=== PATIENT | female | born 1955 | race Caucasian/White ===

== ENCOUNTER 2018-12-09 02:57 | Outpatient (CLI) | payer MEDICARE, SELFPAY ==
[2018-12-09 13:02] LABS: Abs Immature Grans 0.01 k/cumm (0.0-0.09); Absolute Basophil Count 0.01 k/cumm (0.0-0.2); Absolute Eosinophil Count 0.11 k/cumm (0.0-0.7); Absolute Lymphocyte Count 0.99 k/cumm (1.2-3.4); Absolute Monocyte Count 0.65 k/cumm (0.11-0.7); Basophils % 0.2; Eosinophils % 2.4; HCT 45.2 % (36.0-46.0); Immature Grans % 0.2; Lymphocytes % 21.2; Mean Corp. HGB Concentration 33.2 g/dL (32.0-36.0); Mean Corpuscular Hemoglobin 32.3 pg (27.0-33.0); Mean Corpuscular Volume 97.2 fL (80-95); Mean Platelet Volume 10.6 fL (8.0-11.0); Monocytes % 13.9; Neutrophils % 62.1; Platelet Count 196 x1000/uL (130-400); RBC 4.65 m/cumm (4.00-5.20); RBC Distribution Width 13.3 % (11.7-14.6); White Blood Cell Count 4.67 k/cumm (4.4-10.8)
[2018-12-09 13:16] LABS: ALT 33 U/L (12-78); AST 22 U/L (15-37); Albumin 3.9 g/dL (3.4-5.0); Alkaline Phosphatase 98 U/L (46-116); Anion Gap 9.4 mmol/L (3-11); BUN 9 mg/dL (7-18); Bilirubin, Total 0.5 mg/dL (0.2-1.0); CO2 27.6 mmol/L (21.0-32.0); CREATININE 0.54 mg/dL (0.55-1.02); Calcium 9.2 mg/dL (8.5-10.1); Chloride 102 mmol/L (98-107); Glucose 87 mg/dL (70-100); Potassium 4.9 mmol/L (3.5-5.1); Sodium 139 mmol/L (136-145); Total Protein 7.2 g/dL (6.4-8.2)
[2018-12-09 13:28] LABS: Iron 83 ug/dL (50-175); Total Iron Binding Capacity 355 ug/dL (250-450); Transferrin Sat 23 % (15-50)
== END 2018-12-09 03:17 ==
PROVIDERS: PCP Internal Medicine; Visit Provider Internal Medicine
DX: F41.9 Anxiety disorder, unspecified (principal); F32.9 Major depressive disorder, single episode, unspecified; E78.5 Hyperlipidemia, unspecified; R35.0 Frequency of micturition; R53.83 Other fatigue; R79.89 Other specified abnormal findings of blood chemistry
CPT/HCPCS: 36415; 80053; 83540; 83550; 84443; 85025

== ENCOUNTER 2018-12-18 16:43 | Emergency (ER) | payer MEDICARE, SELFPAY ==
[2018-12-18 16:53] VITALS: BP 160/95; PULSE 96; RESP 14; TEMP 36.7; O2SAT 96
[2018-12-18 16:56] LABS: Bilirubin Small (Negative); Blood Moderate (Negative); Clarity Cloudy; Glucose Negative (Negative); Ketones Trace mg/dL (Negative); Leukocyte Esterase Large (Negative); Nitrite Positive (Negative); Specific Gravity 1.025 (1.005-1.025); Urobilinogen 0.2 EU/dL (Up TO 0.2)
[2018-12-18 17:04] LABS: C & S Indicated? Yes; WBC >50 HPF (0-5)
--- NOTE | 2018-12-18 17:07 | W.ED.GENAD ---
Discharge Plan Disposition Patient Disposition: HOME Condition: Stable Discharge Details Chief Complaint: Urinary Clinical Impression: UTI (urinary tract infection) Primary Care Provider: Lisa Morris ED Provider: Bety Ledesma Home Meds and New Rx's Prescriptions: New cephalexin [Keflex] 500 mg capsule 500 mg PO BID 5 Days Qty: 10 RF: 0 Continued fluoxetine 40 mg capsule 40 mg PO DAILY Qty: 90 RF: 3 ibuprofen 800 mg tablet 800 mg PO TID PRN (Reason: pain) Qty: 90 RF: 3 lorazepam 1 mg tablet 1 mg PO QHS PRN (Reason: sleep) Qty: 60 RF: 0 Discharge Instructions Instructions: Urinary Tract Infection in Women (ED) Additional Instructions: Take the antibiotics until finished. Drink plenty of fluids. Alternate Tylenol and Motrin as needed and directed for pain. Follow-up with your primary care doctor in 1 week for reevaluation. Return immediately to the emergency department with any worsening or concerning symptoms. Discharge Data Discharge Physician: Bety Ledesma Medical Decision Making 63-year-old female who presents with urinary urgency and frequency for the past week. Denies fever, vomiting, abdominal or back pain. Blood pressure mildly hypertensive. Afebrile. Patient appears nontoxic. Abdomen soft nontender. No CVA tenderness. Urinalysis obtained on arrival and notes findings consistent with UTI. Given 1 dose of Keflex here as well as 1 dose for home and prescription. She is instructed to follow-up with primary care doctor for reevaluation and return here anytime if worse. Medical Records Medical records reviewed: Yes I reviewed the patient's medical records. Lab Data Lab results reviewed: Yes I reviewed the patient's lab results. 12/18/18 16:47 Urine - Reflex from Ua Urine Culture - Pending Laboratory Tests Range/Units 12/18/18 16:47 Urine Color (Yellow) Yellow Urine Clarity Cloudy Urine pH (5-8) 6.0 Ur Specific [place] (1.005-1.025) 1.025 Urine Protein (Negative) mg/dL 100 H Urine Ketones (Negative) mg/dL Trace H Urine Blood (Negative) Moderate H Urine Nitrite (Negative) Positive H Urine Bilirubin (Negative) Small H Urine Urobilinogen (Up TO 0.2) EU/dL 0.2 Ur Leukocyte Esterase (Negative) Large H Urine RBC Not Applicable Urine WBC (0-5) HPF >50 Ur Epithelial Cells Not Applicable Urine Crystals Not Applicable Urine Bacteria Not Applicable Urine Mucus Not Applicable Ur Culture Indicated? Yes Urine Glucose (Negative) mg/dL Negative HPI General Mode of arrival: ambulatory. Date/Time Provider Initiated Documentation: 12/18/18 16:45. Limitations to Documentation: no limitations. Information obtained by: patient. HPI Narrative: Patient is a 63-year-old female who presents to the ED with a complaint of urinary urgency and frequency for the past week. She denies any fever, dysuria, hematuria, nausea, vomiting, abdominal pain or back pain. Related Data Home Medications Medication Instructions Recorded Confirmed ibuprofen 800 mg tablet 800 mg PO TID PRN #90 tab-cap 07/30/18 12/18/18 fluoxetine 40 mg capsule 40 mg PO DAILY #90 cap 10/12/18 12/18/18 lorazepam 1 mg tablet 1 mg PO QHS PRN #60 tab 12/07/18 12/18/18 cephalexin [Keflex] 500 mg PO BID 5 Days #10 cap 12/18/18 Previous Rx's Medication Instructions Recorded ibuprofen 800 mg tablet 800 mg PO TID PRN #90 tab-cap 07/30/18 fluoxetine 40 mg capsule 40 mg PO DAILY #90 cap 10/12/18 lorazepam 1 mg tablet 1 mg PO QHS PRN #60 tab 12/07/18 cephalexin [Keflex] 500 mg PO BID 5 Days #10 cap 12/18/18 Allergies Allergy/AdvReac Type Severity Reaction Status Date / Time No Known Allergies Allergy Unverified 12/18/18 16:55 General Stated Complaint: Urinary RACHELLE: 4 Review of Systems Review of Systems All systems reviewed & are unremarkable except as noted in HPI and below Constitutional Reports as per HPI, Denies chills and Denies fever(s) Eyes Denies blurry vision ENT Denies dizziness, Denies sore throat and Denies throat swelling Cardiovascular Denies chest pain and Denies dyspnea Respiratory Denies cough and Denies dyspnea Gastrointestinal Denies abdominal pain, Denies diarrhea and Denies vomiting Genitourinary Denies hematuria, Reports urinary frequency, Reports dysuria and Reports urinary urgency Musculoskeletal Denies back pain and Denies numbness Integumentary/Breasts Denies lesions and Denies rash Neurologic Denies dizziness, Denies focal weakness and Denies numbness Allergic/Immunologic Denies throat swelling [facility] Medical History Anxiety (Chronic) Depression (Chronic) Surgical History History of appendectomy (Chronic) Family History Mother Heart disease Father Throat cancer Social History Smoking/Tobacco Use Status: Former Tobacco Use Second Hand Exposure: No Alcohol Intake: current Alcohol Intake frequency: a few times a week Alcohol type: beer Drug use: Never Substance use type: does not use Caregiver/Support person: No Household members: spouse Pets and animals: Yes Pets and animals: dog(s) Sexually active: Yes Do you think of yourself as: straight/heterosexual Current gender identity: female What is your relationship status?: How often do you talk on the phone with friends or family?: three or more times per week How often do you get together with friends or relatives?: once per week How often do you attend scientology or jainism services?: decline to answer Do you belong to any clubs or organized social groups?: no Panel score (0-1 are the most socially isolated patients): 2 What type of physical activity do you participate in: walking Duration: 15-30 minutes/day Frequency: 1-2 times per week Jen/Gnosticism: Pentecostal Special jen needs: No Do you feel safe at home: Yes Do you feel safe in your relationship?: Yes Exam Const General: cooperative, healthy appearing and no acute distress [facility] Head: normal to inspection Face and sinus: normal facial exam Eyes General: appearance normal, both eyes and all related structures Pupils: PERRL EOM: EOM intact bilaterally Neck Neck: normal visual inspection and No submandibular swelling Lymphatic: no lymphadenopathy noted Chest Chest: normal inspection of the chest and no tenderness Resp Effort & Inspection: normal respiratory effort and able to speak in complete sentences Auscultation: clear to auscultation bilaterally Cardio Rate: regular rate Rhythm: regular rhythm GI Inspection: normal to inspection Palpation: soft, not firm, not rigid and nontender Auscultation: normal bowel sounds Back/Spine/Pelvis Back: no CVA tenderness Skin General skin exam: no rashes or lesions noted Neuro General: alert, awake and oriented x3 Cognition: normal cognition Speech: speech normal Motor: muscle tone normal throughout Sensory Exam: no sensory deficits noted Extrem General: normal to inspection, full ROM and no edema Psych Appearance: grossly normal Mental Status: mental status grossly normal Speech and Movement: speech and movement normal Affect: normal affect Course Vital Signs Temperature 98.1 F 12/18/18 16:53 Pulse 96 H 12/18/18 16:53 Respiratory Rate 14 12/18/18 16:53 Blood Pressure 160/95 H 12/18/18 16:53 Pulse Oximetry 96 12/18/18 16:53 Temperature 98.1 F 12/18/18 16:53 Pulse 96 H 12/18/18 16:53 Respiratory Rate 14 12/18/18 16:53 Respiratory Effort Non-Labored 12/18/18 16:56 Blood Pressure 160/95 H 12/18/18 16:53 Pulse Oximetry 96 12/18/18 16:53 Oxygen Delivery Method Room Air 12/18/18 16:53 Oxygen Flow Rate 0 12/18/18 16:53 Pain Level 6 12/18/18 16:55 Lab/Test Results Lab/Test Results: 12/18/18 16:47 Urine - Reflex from Ua Urine Culture - Pending Laboratory Tests Range/Units 12/18/18 16:47 Urine Color (Yellow) Yellow Urine Clarity Cloudy Urine pH (5-8) 6.0 Ur Specific [place] (1.005-1.025) 1.025 Urine Protein (Negative) mg/dL 100 H Urine Ketones (Negative) mg/dL Trace H Urine Blood (Negative) Moderate H Urine Nitrite (Negative) Positive H Urine Bilirubin (Negative) Small H Urine Urobilinogen (Up TO 0.2) EU/dL 0.2 Ur Leukocyte Esterase (Negative) Large H Urine RBC Not Applicable Urine WBC (0-5) HPF >50 Ur Epithelial Cells Not Applicable Urine Crystals Not Applicable Urine Bacteria Not Applicable Urine Mucus Not Applicable Ur Culture Indicated? Yes Urine Glucose (Negative) mg/dL Negative
[2018-12-18] MEDS: Cephalexin 500 MG CAP PO ×2 (17:55)
[2018-12-18 18:00] VITALS: BP 137/81; PULSE 78; RESP 20; TEMP 36.3; O2SAT 95
== END 2018-12-18 18:03 | disposition home or self-care (01) ==
PROVIDERS: Student in an Organized Health Care Education/Training Program; Emergency Provider Physician Assistant; PCP Internal Medicine
DX: N39.0 Urinary tract infection, site not specified (principal); B96.20 Unspecified Escherichia coli [E. coli] as the cause of diseases classified elsewhere
CPT/HCPCS: 87077; 99283; 81003; 81015; 87086; 87186

== ENCOUNTER 2019-01-25 01:51 | Outpatient (CLI) | payer MEDICARE, SELFPAY ==
--- NOTE | 2019-01-25 15:10 | DI.US_ITS ---
SYMPTOM/DIAGNOSIS: LT KNEE PAIN, M25.562, ? DVT LEFT LOWER EXTREMITY ULTRASOUND: The femoral and popliteal veins and visualized calf veins are freely compressible. The doppler venous wave form augments normally. No deep venous thrombosis or superficial thrombosis is identified. A small Clay's cyst is noted measuring 1.9 by 0.4 by 1.6 cm. IMPRESSION: Small Clay's cyst. No evidence of DVT.
== END 2019-01-25 02:11 ==
PROVIDERS: PCP Internal Medicine
DX: M25.562 Pain in left knee; M71.22 Synovial cyst of popliteal space [Baker], left knee
CPT/HCPCS: 93971

== ENCOUNTER 2019-02-27 17:59 | Emergency (ER) | payer MEDICARE, SELFPAY ==
[2019-02-27 18:01] VITALS: BP 132/69; PULSE 80; RESP 16; TEMP 36.6; O2SAT 99
--- NOTE | 2019-02-27 18:18 | DI.RAD_ITS ---
SYMPTOM/DIAGNOSIS: LEFT MEDIAL KNEE PAIN, 1 MONTH WORSENING. LEFT KNEE: There is mild narrowing of the medial femoral tibial joint space. There is a small joint effusion. There is no significant camila-articular spurring. No fracture is identified. IMPRESSION: Small joint effusion.
--- NOTE | 2019-02-27 18:25 | ED.GENADUL_ITS ---
Discharge Plan Disposition Patient Disposition: HOME Condition: Good Discharge Details Chief Complaint: Orthopedic Clinical Impression: Acute pain of left knee, Muscle strain Primary Care Provider: Lisa Morris ED Provider: Stanley Jack Home Meds and New Rx's Prescriptions: New lidocaine [Lidoderm] 1 PATCH patch 1 patch Topical Q24H Qty: 4 RF: 0 No Action fluoxetine 40 mg capsule 40 mg PO DAILY Qty: 90 RF: 3 apixaban 5 mg tablet 5 mg PO BID Qty: 60 RF: 0 lorazepam 1 mg tablet 1 mg PO QHS PRN (Reason: sleep) Qty: 60 RF: 0 diltiazem HCl [Cartia XT] 180 mg Capsule,Extended Release 24hr 180 mg PO DAILY RF: 0 Discharge Instructions Instructions: Muscle Strain (ED), Knee Pain (ED) Additional Instructions: Please use the Lidoderm patch as directed. Please continue to take 500 mg of Tylenol every 6 hours. Please maintain crutch use, and maintain nonweightbearing for the next 1 to 2 weeks until you are reassessed by your primary care provider. Please follow-up on an outpatient basis for the ultrasound. They will call you for scheduling time. If you notice any worsening of your symptoms, or any new symptoms such as vomiting, diarrhea, fever, chills, shortness of breath, chest pain, numbness, weakness, or fainting , please return immediately to the emergency department for reevaluation. Please follow up with your primary care provider as soon as possible for reassessment and reevaluation. As always, it was a pleasure participating in your medical care today. Referrals: Lisa Morris MD [Primary Care Provider] - Medical Decision Making This is a pleasant 63-year-old female with a past medical history of atrial fibrillation for which he takes Eliquis, who presents today for evaluation of left knee pain. It is been present for the last month. She had an ultrasound performed 1 month ago which showed evidence of a Clay's cyst, but no other significant abnormality. She has been taking occasional Tylenol but this is led to no significant improvement. Pain is at the medial aspect of the knee, worse with ambulation, with slight radiation up the medial component. There is mild tenderness in the posterior aspect as well. Minimal swelling. Mild joint effusion in the knee on bedside limited ultrasound exam. Limited bedside ultrasound was performed in evaluation of the vessels in the area of tenderness shows notable compressibility no signs of trauma. Pain does seem to be present over the insertion site over the sartorius muscle in the chrysalis muscle. This may just be localized muscle irritation. We will get an x-ray to evaluate for small avulsion fracture. Give a Lidoderm patch, crutches, and recommend continue Tylenol. Patient is already on Eliquis and I feel that DVT is unlikely, however we will order outpatient formal ultrasonography for reassessment of the Clay's cyst. 7:17 PM The patient's x-ray has returned negative for any acute process. Pain is slightly improved with Lidoderm patch. I still do feel that there is notable concern for gracilis or sartorius sprain that is causing problems. I do feel that rest and nonweightbearing is important at this time as a trial with crutches. If she has no improvement with this I do feel that it will be important for orthopedic follow-up, however feel that we can continue with this conservative therapy first. Additionally we will schedule for an outpatient ultrasound for evaluation of her Clay's cyst. I feel that DVT is notably unlikely as she is consistently on Eliquis, and has not missed any doses. At this time the patient remains hemodynamically stable, shows no signs of a septic joint, severe orthopedic disability, or a life-threatening etiology. Patient will be discharged home with close follow-up. We will schedule the outpatient ultrasound. I have extensively reviewed the treatment plan and discharge instructions with the patient. I have addressed all patient concerns at this time. The patient was made aware of what symptoms to monitor for that would warrant a return to the emergency department. Discussed the plan with the patient, they demonstrate verbal understanding and agreement with our assessment and plan at this time. FINDINGS: Bones/joints: Mild suprapatellar joint effusion. There is no evidence of acute fracture. There is no evidence of malalignment or dislocation. Soft tissues: Normal. IMPRESSION: 1. Mild suprapatellar joint effusion. 2. There is no evidence of acute fracture. Dictated and Authenticated by: Brigid Camilo MD. Ordering:FAVIOLA Angel MD HPI General Date/Time Provider Initiated Documentation: 02/27/19 18:00 . HPI Narrative: This is a pleasant 63-year-old female who presents today for evaluation of left-sided knee pain. Patient states that the symptoms have been present for the last month. She is on Eliquis for atrial fibrillation. She had a lower extremity DVT study performed 1 month ago, and at that time she had evidence of a small Clay's cyst, but no DVT. No other significant abnormalities. She has been using conservative therapy of occasional Tylenol for control the symptoms however this is not improved her symptoms. Symptoms are worsened with ambulation. Improved-rest. Symptoms are on the medial aspect of the knee, and radiate proximally roughly 6 inches. She denies any significant swelling in the lower extremity. She denies any pain in the hip. She denies any recent falls or trauma. She has no other complaints at this time. She denies any recent surgeries, long trips, recent procedures, numbness, tingling, weakness, fever or chills. Related Data Home Medications Medication Instructions Recorded Confirmed fluoxetine 40 mg capsule 40 mg PO DAILY #90 cap 10/12/18 02/27/19 apixaban 5 mg tablet 5 mg PO BID #60 tab 02/15/19 02/27/19 lorazepam 1 mg tablet 1 mg PO QHS PRN #60 tab 02/16/19 02/27/19 diltiazem HCl [Cartia XT] 180 mg PO DAILY 02/27/19 02/27/19 lidocaine [Lidoderm] 1 patch TOPICAL Q24H #4 patch 02/27/19 Previous Rx's Medication Instructions Recorded fluoxetine 40 mg capsule 40 mg PO DAILY #90 cap 10/12/18 apixaban 5 mg tablet 5 mg PO BID #60 tab 02/15/19 lorazepam 1 mg tablet 1 mg PO QHS PRN #60 tab 02/16/19 lidocaine [Lidoderm] 1 patch TOPICAL Q24H #4 patch 02/27/19 Allergies Allergy/AdvReac Type Severity Reaction Status Date / Time No Known Allergies Allergy Verified 02/27/19 18:05 General Stated Complaint: Orthopedic RACHELLE: 4 Review of Systems Review of Systems All systems reviewed & are unremarkable except as noted in HPI and below PFSH Social History Smoking/Tobacco Use Status: Former Tobacco Use Second Hand Exposure: No Alcohol Intake: current Alcohol Intake frequency: a few times a week Alcohol type: beer Drug use: Never Substance use type: does not use Caregiver/Support person: No Household members: spouse Pets and animals: Yes Pets and animals: dog(s) Sexually active: Yes Do you think of yourself as: straight/heterosexual Current gender identity: female What is your relationship status?: How often do you talk on the phone with friends or family?: three or more times per week How often do you get together with friends or relatives?: once per week How often do you attend adventism or mosque services?: decline to answer Do you belong to any clubs or organized social groups?: no Panel score (0-1 are the most socially isolated patients): 2 What type of physical activity do you participate in: walking Duration: 15-30 minutes/day Frequency: 1-2 times per week Jen/Sabianism: Roman Catholic Special jen needs: No Do you feel safe at home: Yes Do you feel safe in your relationship?: Yes Exam Narrative Exam Narrative: 1.Const: Well-nourished, Well-developed, appearing stated age 2.Eyes: PERRL, no conjunctival injection, and symmetrical lids. 3.ENT: Atraumatic external nose and ears. Moist MM. Neck: Symmetric, trachea midline, No thyromegaly. 4.CVS: +S1/S2, No murmurs or gallops. Peripheral pulses 2+ and equal in all extremities. Brisk capillary refill in all extremities. 5.RESP: Unlabored respiratory effort. Clear to auscultation bilaterally. No wheezes rales or rhonchi 6.GI: Soft, Nontender/Nondistended, No hepatosplenomegaly. No guarding or rebo und. 7.MSK: Normocephalic/Atraumatic, Extremities w/o deformity. No cyanosis or clubbing, Normal movement of all extremities. Left knee: the knee is stable to varus, valgus, and anterior drawer stress. No deformity. Pain is slightly worsened with valgus stressing. patellar grind test is negative. Luzma test is negative for pain. Patient is able to walk without difficulty. No edema or warmth to the joint. No ttp to the patella, or fibular head. There does appear to be mild pain on palpation of the medial distal femur tip in the proximal tibial plateau. His pain does appear to be reproducible and is really reproducibly radiating up the medial aspect of the thigh roughly 6 inches. Limited bedside ultrasound directly over the area of pain does show a few small vessels, all of which are easily compressible. No evidence of DVT or clot. There is a small amount of joint effusion on bedside ultrasound. When the patient does ambulate she does have a bit of a winged telling of her left lower extremity. Minimal limp. 8.Skin: Warm, Dry. No rashes or lesions. 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 Sensation grossly intact, no focal neurologic deficits. 10.Psych: (AAO) x3. Appropriate mood and affect Course Vital Signs Temperature 36.6 C 02/27/19 18:01 Pulse 80 02/27/19 18:01 Respiratory Rate 16 02/27/19 18:01 Blood Pressure 132/69 02/27/19 18:01 Pulse Oximetry 99 02/27/19 18:01 Temperature 36.6 C 02/27/19 18:01 Temperature Source Skin 02/27/19 18:01 Pulse 80 02/27/19 18:01 Respiratory Rate 16 02/27/19 18:01 Respiratory Effort Non-Labored 02/27/19 18:04 Blood Pressure 132/69 02/27/19 18:01 Pulse Oximetry 99 02/27/19 18:01 Pain Level 8 02/27/19 18:01
--- NOTE | 2019-02-27 19:08 | DI.VRAD_ITS ---
EXAM: XR Left Knee EXAM DATE/TIME: 02/27/2019 6:19 PM CLINICAL HISTORY: 63 years old, female; Patient HX: Left medial knee pain, 1 month, worsening TECHNIQUE: Imaging protocol: XR Left knee. Views: 3 views. COMPARISON: US LOWER EXTREMITY VASCULAR LT 01/25/2019 2:30 PM FINDINGS: Bones/joints: Mild suprapatellar joint effusion. There is no evidence of acute fracture. There is no evidence of malalignment or dislocation. Soft tissues: Normal. IMPRESSION: 1. Mild suprapatellar joint effusion. 2. There is no evidence of acute fracture. Dictated and Authenticated by: Brigid Camilo MD. Ordering:FAVIOLA Angel MD
--- NOTE | 2019-02-27 19:11 | NUR.NOTE ---
pt back from xray fitted for crutches Nursing Note:
[2019-02-27] MEDS: Lidocaine 5% Patch 1 PATCH TP (19:16)
== END 2019-02-27 19:30 | disposition home or self-care (01) ==
PROVIDERS: Emergency Provider Student in an Organized Health Care Education/Training Program; PCP Internal Medicine
DX: M25.562 Pain in left knee (principal); S76.812A Strain of other specified muscles, fascia and tendons at thigh level, left thigh, initial encounter; I48.91 Unspecified atrial fibrillation; Z79.01 Long term (current) use of anticoagulants
CPT/HCPCS: 73562; 99283; E0114

== ENCOUNTER 2019-03-06 00:45 | Outpatient (CLI) | payer MEDICARE, SELFPAY ==
--- NOTE | 2019-03-06 14:10 | MERGE_ITS ---
*[facility]* *[facility]* [address] [place] [address] Date of study: 03/06/2019 Transthoracic Echocardiography M-mode, complete 2D, complete spectral Doppler, and color Doppler *STUDY CONCLUSIONS* Summary: 1. Left ventricle: The cavity size was normal. Systolic function was normal. The estimated ejection fraction was 60-65%. Diastolic parameters were normal. There was no evidence of elevated ventricular filling pressure by Doppler parameters. 2. Mitral valve: There was mild regurgitation. 3. Left atrium: The atrium was mildly dilated. 4. Right ventricle: The cavity size was normal. Wall thickness was normal. Systolic function was normal. 5. Right atrium: The atrium was mildly dilated. 6. Atrial septum: No defect or patent foramen ovale was identified. 7. Tricuspid valve: There was moderate regurgitation. 8. Pulmonary arteries: Pulmonary systolic pressure was in the range of 35mm Hg to 45mm Hg. 9. Inferior vena cava: The vessel was patent and normal in size. The respirophasic diameter changes were in the normal range (greater than or equal to 50%), consistent with normal central venous pressure. *PATIENT PRESENTATION* Height: 167.6cm (66in ) S/D Pressure: 131 / 87 Weight: 87.1kg (191.6lb ) BSA: 2.04m^2 Test start time: 02:15 PM. Test stop time: 03:15 PM. PERFORMING Unknown PERFORMING [facility] ORDERING Jenny Brooks REFERRING Jenny Brooks Susan M NEUROLOGY DIRECTOR Ally Lawrence, RT (R)(CT), [facility] *PROCEDURE DATA* Procedure information: This study was interpreted by [facility]. Pertinent images and digital data are archived for permanent storage and are available for subsequent review. No prior study was available for comparison. Study status: Routine. Transthoracic echocardiography. M-mode, complete 2D, complete spectral Doppler, and color Doppler. A Transthoracic Echocardiogram was performed. Scanning was performed from the parasternal, apical, subcostal, and suprasternal notch acoustic windows. Images were obtained using an [id number] cardiac ultrasound machine. Image quality was adequate. Study completion: The patient tolerated the procedure well. History: PMH: New onset afib. LINO i48.91. *CARDIAC ANATOMY* Left ventricle: The cavity size was normal. Systolic function was normal. The estimated ejection fraction was 60-65%. The tissue Doppler parameters were normal. Diastolic parameters were normal. There was no evidence of elevated ventricular filling pressure by Doppler parameters. Aortic valve: Trileaflet. Doppler: There was no stenosis. There was no regurgitation. VTI ratio of LVOT to aortic valve: 0.81. Valve area (VTI): 2.1cm^2. Indexed valve area (VTI): 1cm^2/m^2. Peak velocity ratio of LVOT to aortic valve: 0.8. Valve area (Vmax): 2cm^2. Indexed valve area (Vmax): 1cm^2/m^2. Mean velocity ratio of LVOT to aortic valve: 0.72. Valve area (Vmean): 1.8cm^2. Indexed valve area (Vmean): 0.9cm^2/m^2. Mean gradient (S): 4.4mm Hg. Peak gradient (S): 7.4mm Hg. Aorta: Aortic root: The aortic root was at upper normal limits. Ascending aorta: The ascending aorta was mildly dilated. Mitral valve: Doppler: There was no evidence for stenosis. There was mild regurgitation. Valve area by pressure half-time: 3.8cm^2. Indexed valve area by pressure half-time: 1.9cm^2/m^2. Peak gradient (D): 4.4mm Hg. Left atrium: The atrium was mildly dilated. Atrial septum: No defect or patent foramen ovale was identified. Right ventricle: The cavity size was normal. Wall thickness was normal. Systolic function was normal. Pulmonic valve: Doppler: There was no evidence for stenosis. There was no significant regurgitation. Peak gradient (S): 3mm Hg. Tricuspid valve: Doppler: There was moderate regurgitation. Pulmonary artery: Poorly visualized. Pulmonary systolic pressure was in the range of 35mm Hg to 45mm Hg. Right atrium: The atrium was mildly dilated. Pericardium: There was no pericardial effusion. Systemic veins: Inferior vena cava: Well visualized. The vessel was patent and normal in size. The respirophasic diameter changes were in the normal range (greater than or equal to 50%), consistent with normal central venous pressure. Baseline ECG: Atrial fibrillation. Measurements Left ventricle Value Reference LV ID, ED, PLAX 4.4 cm 3.5 - 6.0 LV ID, ES, PLAX 2.9 cm 2.1 - 4.0 LV PW thickness, ED, PLAX 0.9 cm LV end-diastolic volume, 1-p A2C 88 ml LV ejection fraction, 1-p A2C 56 % LV end-diastolic volume, 1-p A4C 77 ml LV ejection fraction, 1-p A4C 64 % LV e', lateral 0.129 m/sec LV E/e', lateral 8 LV e', medial 0.093 m/sec LV E/e', medial 11 LV e', average 0.111 m/sec LV E/e', average 9 Ventricular septum Value Reference IVS thickness, ED, PLAX 0.9 cm LVOT Value Reference LVOT ID, A-P 1.8 cm LVOT area 2.6 cm^2 LVOT peak velocity, S 1.08 m/sec LVOT mean velocity, S 0.72 m/sec LVOT VTI, S 21.0 cm LVOT peak gradient, S 4.7 mm Hg LVOT mean gradient, S 2.4 mm Hg Stroke volume (SV), LVOT DP 54 ml Stroke index (SV/bsa), LVOT DP 26 ml/m^2 Aortic valve Value Reference Aortic valve peak velocity, S 1.4 m/sec Aortic valve mean velocity, S 1 m/sec Aortic valve VTI, S 26.0 cm Aortic mean gradient, S 4.4 mm Hg Aortic peak gradient, S 7.4 mm Hg VTI ratio, LVOT/AV 0.81 Aortic valve area, VTI 2.1 cm^2 Velocity ratio, peak, LVOT/AV 0.8 Aortic valve area, peak velocity 2 cm^2 Velocity ratio, mean, LVOT/AV 0.72 Aortic valve area, mean velocity 1.8 cm^2 Aortic valve area/bsa, mean velocity 0.9 cm^2/m^2 Aorta Value Reference Aortic root ID, ED 3.7 cm Ascending aorta ID, A-P, S 3.2 cm Left atrium Value Reference LA ID, A-P, ES 4.0 cm LA ID/bsa, A-P 2.0 cm/m^2 <=2.2 LA volume/bsa, ES, 1-p A4C 46 ml/m^2 LA volume, ES, 2-p 81 ml LA volume/bsa, ES, 2-p 40 ml/m^2 LA/aortic root ratio 1.1 Mitral valve Value Reference Mitral E-wave peak velocity 1.05 m/sec Mitral deceleration time 199 ms 150 - 230 Mitral pressure half-time 58 ms Mitral peak gradient, D 4.4 mm Hg Mitral valve area, PHT, DP 3.8 cm^2 Tricuspid valve Value Reference Tricuspid regurg peak velocity 2.9 m/sec Tricuspid peak RV-RA gradient 34 mm Hg Right atrium Value Reference RA area, ES, A4C (H) 22.2 cm^2 8.3 - 19.5 Pulmonic valve Value Reference Pulmonic peak gradient, S 3 mm Hg Legend: (L) and (H) berta values outside specified reference range. I have personally reviewed the images and have reviewed and edited the reported findings. Electronically signed by Jonathan Hernandez MD 03/06/2019 16:12
== END 2019-03-06 01:05 ==
PROVIDERS: PCP Internal Medicine
DX: I48.91 Unspecified atrial fibrillation (principal); I08.1 Rheumatic disorders of both mitral and tricuspid valves; I51.7 Cardiomegaly; R53.83 Other fatigue
CPT/HCPCS: 93306

== ENCOUNTER 2019-03-15 00:57 | Outpatient (CLI) | payer MEDICARE, SELFPAY ==
--- NOTE | 2019-03-15 15:03 | DI.MRI_ITS ---
SYMPTOMS/DIAGNOSIS: LEFT KNEE PAIN/SWELLING, MRI OF THE LEFT KNEE: Routine noncontrast examination was performed. There is a tear of the body and posterior horn of the medial meniscus. There is an associated encapsulate fluid collection, most suggestive of a parameniscal cyst. The lateral meniscus appears intact. The anterior cruciate and posterior cruciate ligaments are intact, as is the lateral collateral ligament complex, extensor mechanism, medial and lateral retinaculum and the popliteus tendon. There is fluid seen surrounding an intact medial collateral ligament consistent with a sprain. There is thinning of the articular cartilage in the medial femorotibial joint space. No findings to suggest an occult fracture or avascular necrosis are seen. There is an enlarged joint effusion. There is a popliteal cyst present. There is edema seen in the soft tissues around the knee. The muscles show normal signal and size. No significant muscular fatty atrophy is present. IMPRESSION: 1. Tear of the posterior horn and body of the medial meniscus with an associated parameniscal cyst. 2. MCL sprain. 3. Large joint effusion, popliteal cyst and subcutaneous edema.
== END 2019-03-15 01:17 ==
PROVIDERS: PCP Internal Medicine; Visit Provider Internal Medicine
DX: M25.562 Pain in left knee (principal); M79.89 Other specified soft tissue disorders; S83.242A Other tear of medial meniscus, current injury, left knee, initial encounter; S83.412A Sprain of medial collateral ligament of left knee, initial encounter; M25.462 Effusion, left knee; M71.22 Synovial cyst of popliteal space [Baker], left knee
CPT/HCPCS: 73721

== ENCOUNTER → 2019-04-10 14:37 | Outpatient (BNVA) | payer MEDICARE, SELFPAY | PROVIDERS: PCP Internal Medicine; Referring Provider Internal Medicine; Visit Provider Student in an Organized Health Care Education/Training Program | DX: S83.232A Complex tear of medial meniscus, current injury, left knee, initial encounter (principal); X58.XXXA Exposure to other specified factors, initial encounter; M25.562 Pain in left knee | CPT/HCPCS: 20610; 99203; 99214; J1040 ==

== ENCOUNTER → 2019-04-26 13:47 | Outpatient (BNVA) | payer MEDICARE, SELFPAY | PROVIDERS: PCP Internal Medicine; Visit Provider Student in an Organized Health Care Education/Training Program | DX: I48.2 Chronic atrial fibrillation (principal); E78.2 Mixed hyperlipidemia; Z79.01 Long term (current) use of anticoagulants | CPT/HCPCS: 99204; 99214 ==

== ENCOUNTER → 2019-05-22 14:41 | Outpatient (BNVA) | payer MEDICARE, SELFPAY | PROVIDERS: PCP Internal Medicine; Referring Provider Internal Medicine; Visit Provider Student in an Organized Health Care Education/Training Program | DX: M25.562 Pain in left knee (principal); S83.232A Complex tear of medial meniscus, current injury, left knee, initial encounter; X58.XXXA Exposure to other specified factors, initial encounter; Z98.890 Other specified postprocedural states | CPT/HCPCS: 99213 ==

== ENCOUNTER 2020-01-30 18:43 | Outpatient (REF) | payer MEDICARE, SELFPAY ==
[2020-01-30 19:14] LABS: Calculated LDL 145 mg/dL (<100); Cholesterol 233 mg/dL (<200); HDL Cholesterol 60 mg/dL (40-60); Triglyceride 140 mg/dL (<150)
== END 2020-01-30 19:03 ==
LOC: LBN 18:43
PROVIDERS: PCP Nurse Practitioner; Visit Provider Internal Medicine
DX: E78.5 Hyperlipidemia, unspecified (principal)
CPT/HCPCS: 80061

== ENCOUNTER → 2022-03-20 00:46 | Outpatient (CLI) | payer OTHER, SELFPAY ==
--- OUTSIDE RECORDS SUMMARY | 2022-03-20 00:48 | XMS_ITS | Encounter Summary ---
:1955 Author Organization [facility] Address [address] [place] [address] Care Team Providers Name Role Phone Unavailable Primary Care Provider Unavailable Encounter Details Date Type Department Care Team Description 03/19/2000 Results Only [facility] - Breann Vora MD Maple conversion [address] [place], [place] [id number] [place] [id number] [phone] Social History Tobacco Use Types Packs/Day Years Used Date Never Assessed Sex Assigned at Date Recorded Not on file documented as of this encounter Plan of Treatment Not on filedocumented as of this encounter Procedures Procedure Name Priority Date/Time Associated Diagnosis Comme [facility] SURGICAL PATHOLOGY Routine 03/19/2000 0:00 EDT Re sults for this procedure are i n the results section. documented in this encounter Results SURGICAL PATHOLOGY (03/19/2000 0:00 EDT) Pathology Report: SURGICAL PATHOLOGY REPORT [facility] Reports generated via electronic interface contain chang ginal data; LAB however they are lacking the format of the original re port. Caution should be taken when reading/interpreting unfo rmatted reports. Name: ? PRASAD ÁLVAREZ ? Accession #: ? [id number] ? : ? 1955 (Age: 44) ??F ? Collect Date: ? 03/19/2000 ? Location: ? [facility] ? Receive Date: ? 000 ? Provider: BREANN VORA MD Copy to: DUSTY SEPULVEDA MD ? Final Pathologic Diagnosis: ? Skin of axilla, right, shave biopsy: - Verruca vulgaris. Document reviewed and electronically signed by: HARPAL SANZ MD Report ??Date: 03/24/2000 15:49 By the signature above, the attending physician certif ies that he/she has personally conducted a gross and/or microscopic examin ation of the described specimens and rendered or confirmed the above diagnosi s. Specimen(s) Received: ? Papilloma right axilla Clinical History: ? Papilloma right axilla, present for several yea rs Gross Description: ? Received in formalin labelled Wh iting and papilloma rgt axilla is a roughly spherical portion of roach-white nodular tissue measuring 1.1 x 1.1 x 1.0 cm. ??Trisection of the fria ble specimen reveals a roach-white to centrally brown cut surface. ??The specimen is submitted entirely in o ne cassette. (Dr. Gant)/[facility] End of Report Specimen Performing Organization Address City/State/ZIP Code Phon e Number [facility] [address] [place] [address] SERVICES [facility] [address] [place] [address] documented in this encounter Visit Diagnoses Not on filedocumented in this encounter
--- OUTSIDE RECORDS SUMMARY | 2022-03-20 00:48 | XMS_ITS | Clinical Summary ---
:1955 Author Organization [facility] Address [address] [place] [id number] Care Team Providers Name Role Phone Unknown, Provider Primary Care Provider Social History Tobacco Use Types Packs/Day Years Used Date Never Assessed Sex Assigned at Date Recorded Not on file Plan of Treatment Health Maintenance Due Date Last Done Comments Fall Risk Screening 2018 Care Teams Spa Technician Relationship Specialty Start Date End Date Unknown, Provider, PCP - General 07/12/15
--- OUTSIDE RECORDS SUMMARY | 2022-03-20 00:48 | XMS_ITS | Encounter Summary ---
:1955 Author Organization [facility] Address [address] [place] [address] Care Team Providers Name Role Phone Unavailable Primary Care Provider Unavailable Encounter Details Date Type Department Care Team Description 11/08/2008 Before PRISM [facility] - Karla Vieira, Converted Visit Maple conversion READING PROFESSOR (Maple) [address] [place] [address] [place], [place] [phone] (Wo rk) Social History Tobacco Use Types Packs/Day Years Used Date Never Assessed Sex Assigned at Date Recorded Not on file documented as of this encounter Plan of Treatment Not on filedocumented as of this encounter Procedures Procedure Name Priority Date/Time Associated Diagnosis Comme [facility] CYTOPATHOLOGY Routine 11/08/2008 0:00 EST Results for this procedure are i n the results section . documented in this encounter Results CYTOPATHOLOGY (11/08/2008 0:00 EST) Pathology Report: CYTOPATHOLOGY REPORT ? AMAYA ALL EN ? LAB Reports generated via [employer] interface contain original data; ? however they are lacking the format of the original report. ? Caution should be taken when reading/interpreting unformatted reports. ? Name: ? ÁLVAREZ, PRASAD ? Accession #: ? [id number] ? : ? 1955 (Age: 53) ??F ?Collect Date: ? 11/08/2008 ? Location: ? [facility] ? Receive Date: ? 11/09/2008 ? Provider: ?KARLA HAYG OOD READING PROFESSOR ? Copy to: ? Specimen/Source: ? Pap Test, Cervix/Endocervix, ThinPrep Imaging System ? with manual evaluation ? Last Menstrual Period: ? 02/18/09 ? Other: ? HPVA - HPV testing requested if ASC-US on the current ThinPrep Pap test. ? SPECIMEN ADEQUACY ? Satisfactory for Eval uation ? - transformation zone compon ent present ? GENERAL CATEGORIZATION ? Negative for Intraepi thelial Lesion or Malignancy ? INTERPRETATION ? Shift in nain presen t suggestive of bacterial vaginosis. ? Document reviewed and electr onically signed by: ? Kami Damián, CT(ASCP ) ? Report Date: ??03/10/ 2009 15:01 ? End of Report ? Specimen Performing Organization Address City/State/ZIP Code Phon e Number [facility] [address] [place] [address] SERVICES [facility] [address] [place] [address] documented in this encounter Visit Diagnoses Not on filedocumented in this encounter
--- OUTSIDE RECORDS SUMMARY | 2022-03-20 00:48 | XMS_ITS | Encounter Summary ---
:1955 Author Organization [facility] Address [address] [place] [address] Care Team Providers Name Role Phone Unknown, Provider Primary Care Provider Encounter Details Date Type Department Care Team Description 05/06/2017 Results Only [facility]- Lisa Cruz, MD [address] [place] [address] (Wo rk) Social History Tobacco Use Types Packs/Day Years Used Date Never Assessed Sex Assigned at Date Recorded Not on file documented as of this encounter Plan of Treatment Not on filedocumented as of this encounter Procedures Procedure Name Priority Date/Time Associated Diagnosis Comme [facility] SURGICAL PATHOLOGY Routine 05/06/2017 13:03 Resul ts for this EDT procedure are i n the results section. documented in this encounter Results SURGICAL PATHOLOGY (05/06/2017 13:03 EDT) Pathology Report: SURGICAL PATHOLOGY REPORT [facility] Reports generated via electronic interface contain chang ginal data; LABORATORY however they are lacking the format of the original re port. SERVICES Caution should be taken when reading/interpreting unfo rmatted reports. Name: ? MORALES LOWERY ? Accession #: ? [id number] ? : ? 1955 (Age: 61 ) ??F ? Collect Date: ? 05/06/2017 ? Location: ? [facility] ? Receive Date: ? 7 ? Provider: LISA NAVAS MD Copy to: ? Final Pathologic Diagnosis: A. ??SKIN NEAR BRA LINE, LEFT, SHAVE BIOPSY: - Hemangioma, irritated. B. ??SKIN OF BACK, LEFT UPPER, SHAVE BIOPSY: - Seborrheic keratosis, inflamed. Document reviewed and electronically signed by: SHELLEY VOSS MD Report ??Date: 05/11/2017 13:38 By the signature above, the attending physician certif ies that he/she has personally conducted a gross and/or microscopic examin ation of the described specimens and rendered or confirmed the above diagnosi s. Specimen(s) Received: A. ??Hemangioma of L bra line B. ??L upper back Clinical History: Not listed Gross Description: A. ?Received in formalin labelled with proper p atient identification (initials C, P) and hemangioma L bra line is a rubbe ry multilobulated brown-purple lesion (0.5 x 0.4 x 0.4 cm) . There is an attached irregular strip of pale roach-guevara skin (0.4 x 0.3 cm). The margin is inked. Bisected and entirely submitted in A1. B. ?Received in formalin labelled with proper p atient identification (initials C, P) and L upper back is a rubbery roach nodular skin lesion (0.7 x 0.6 x 0.5 cm). The surface of the lesion is gran ular and white. The margin is inked. Trisected and entirely submitted in B1. MUSTAPHA Odonnell ([facility]) 05/07/2017 4:57 PM End of Report Specimen Performing Organization Address City/State/ZIP Code Phon e Number [facility] [address] [place] [address] SERVICES documented in this encounter Visit Diagnoses Not on filedocumented in this encounter Care Teams Seating Upholsterer Relationship Specialty Start Date End Date Unknown, Provider, PCP - General 07/12/15 documented as of this encounter
--- NOTE | 2022-03-20 08:00 | DI.MAMMO_ITS ---
Exam(s) MAMMO SCREENING EXAM: MAMMO SCREENING CLINICAL HISTORY: screening,BASELINE,Z12.39 TECHNIQUE: Bilateral full field digital CC and MLO mammographic images were obtained with 3D tomosyn thesis and utilizing computer aided detection (CAD). COMPARISON: Available for comparison. FINDINGS: Masses/Architectural Distortion: There are multiple nodule seen in both breasts. The largest nodule is seen in the medial right breast and measures 9 mm. There is an 8.5 mm irregular nodule in the sup erior retroareolar region of the left breast. Microcalcifications: No suspicious pleomorphic-type are seen. Skin Thickening/Nipple Retraction: None. IMPRESSION: 1. Multiple bilateral breast nodules. A spot compression view of the left irregular nodule in the re troareolar region is recommended. 2. A bilateral complete breast ultrasound is recommended for further evaluation of these breast nodul es. BI-RADS Category 0 - Assessment Incomplete: Need additional imaging evaluation Breast Density - Category B - Scattered areas of fibroglandular density Breast density category C or D implies that the patient has dense breast tissue. Dense breast tissue is very common and is not abnormal but dense breast tissue can make it harder to find cancer on a ma mmogram. Also, dense breast tissue may increase their breast cancer risk. This information about the result of the mammogram report was provided to the patient to raise their awareness. Use this report when you speak with the patient about their risks for breast cancer, which includes their family hist ory. At that time, you may recommend for more screening tests (Ultrasound or MRI) as they might be us eful based on their risk. A negative radiographic report should not delay biopsy if a dominant or clinically suspicious mass is present. Up to ten percent of cancers are not identified on mammography. A negative report may reinforce clinical impression. Adenosis and dense breasts may obscure an underlying neoplasm. False positive reports average 6 to 10%. Patient will receive a letter notifying them of these results.
== END ==
PROVIDERS: PCP Nurse Practitioner; Visit Provider Nurse Practitioner
DX: Z12.31 Encounter for screening mammogram for malignant neoplasm of breast (principal); R92.8 Other abnormal and inconclusive findings on diagnostic imaging of breast
CPT/HCPCS: 77063; 77067

== ENCOUNTER 2022-03-27 00:41 | Outpatient (CLI) | payer OTHER, SELFPAY ==
--- NOTE | 2022-03-27 | DI.MAMMO_ITS ---
Exam(s) MG MAMMO SCREEN CALL BACK UNI US BREAST LT COMPLETE US BREAST RT COMPLETE EXAM: MG MAMMO SCREEN CALL BACK UNI CLINICAL HISTORY: MULT BREAST NODULES, F/U MAMMO,IRREGULAR LT NODULE. TECHNIQUE: Craniocaudal and mediolateral oblique spot compression digital Mammography views of the l eft breast with Computer Aided Diagnosis followed by Tomosynthesis and bilateral breast ultrasound. COMPARISON: MG MG MAMMO SCREENING from 03/20/2022 US US BREAST RT COMPLETE from 03/27/2022 US US BREAST LT COMPLETE from 03/27/2022 FINDINGS: Mammography/Tomosynthesis: Masses/Architectural Distortion: Multiple circumscribed nodules are demonstrated.. Microcalcifictions: No suspicious pleomorphic-type are seen. Vascular calcifications are present. Skin Thickening/Nipple Retraction: None. Right breast US: Echotexture: Normal appearance of the glandular tissue. Shadowing: No suspicious foci. Cyst: Innumerable small cysts. The largest measures 1 cm in greatest dimension in the 4 o'clock posi tion 2 cm for the from the nipple. Other cysts were demonstrated measuring 6 millimeters in size. Solid lesions: None seen. Ductal dilation: None. Left breast US: Echotexture: Normal appearance of the glandular tissue. Shadowing: No suspicious foci. Cyst: Innumerable small cysts. There is a cluster of microcysts measuring 1.3 x 0.4 x 0.7 cm in the 11 o'clock position 1 cm from the nipple. Other clustered microcysts are seen measuring 6 millimeter s in greatest dimension. Solid lesions: None seen. Ductal dilation: None. IMPRESSION: 1. No evidence of malignancy is noted. 2. Unless there is more urgent need, follow-up screening mammography is recommended, as per [place] [employer] guidelines. 3. The findings were discussed with the patient on the date of the examination. BI-RADS Category 2 - Benign Findings Breast Density - Category B - Scattered areas of fibroglandular density A negative radiographic report should not delay biopsy if a dominant or clinically suspicious mass is present. Up to ten percent of cancers are not identified on mammography. A negative report may reinforce clinical impression. Adenosis and dense breasts may obscure an underlying neoplasm. False positive reports average 6 to 10%. Patient will receive a letter notifying them of these results.
== END 2022-03-27 01:01 ==
PROVIDERS: PCP Nurse Practitioner; Visit Provider Nurse Practitioner
DX: R92.8 Other abnormal and inconclusive findings on diagnostic imaging of breast (principal); R92.0 Mammographic microcalcification found on diagnostic imaging of breast
CPT/HCPCS: 76642; 77063; 77067

== ENCOUNTER 2023-01-07 14:42 | Outpatient (REF) | payer OTHER, SELFPAY ==
--- NOTE | 2023-01-07 13:05 | SKI_PTH ---
PATIENT: Alyce Lowery LOC: [facility] U#:[id number] AGE/SX: 67/F ROOM: RE01/07/[address]: Lupis Alexander : 1955 BED: DIS: 01/07/2023 SPEC #: [id number] RECD: 01/08/23 12:35 STATUS: FERNANDEZ JAFFE #: [id number] QUYEN: 01/07/23 13:[address]: Lupis Alexander DEPT: Surgical Specimen RECD BY: Mary Moreno ENTERED: 01/08/23 12:36 SP TYPE: SHERWIN OT DR: Lovely Sweet, STRIP DEBURRER Deep Vargas MD Tissues: 1 - SKIN BIOPSY(SHAVE/PUNCH) Procedures: SKIN LEVEL 4 Comments: [id number]
== END 2023-01-07 14:43 | disposition home or self-care (01) ==
LOC: LBN 14:42
PROVIDERS: PCP Nurse Practitioner Family; Visit Provider Registered Nurse Maternal Newborn
DX: C44.311 Basal cell carcinoma of skin of nose (principal)
CPT/HCPCS: 88305

== ENCOUNTER 2023-01-26 16:58 | Outpatient (REF) | payer OTHER, SELFPAY ==
--- NOTE | 2023-01-26 16:00 | SKI_PTH ---
PATIENT: Alyce Lowery LOC: [facility] U#:[id number] AGE/SX: 67/F ROOM: RE01/26/[address]: Deep Vargas MD : 1955 BED: DIS: 01/26/2023 SPEC #: [id number] RECD: 01/26/23 18:28 STATUS: FERNANDEZ JAFFE #: [id number] QUYEN: 01/26/23 16:[address]: Deep Vargas DEPT: Surgical Specimen RECD BY: Mary Moreno ENTERED: 01/26/23 18:29 SP TYPE: SHERWIN SAGASTUME DR: Lovely Sweet, WOVEN PAPER HAT MENDER Tissues: 1 - SKIN BIOPSY(SHAVE/PUNCH) Procedures: SKIN LEVEL 4 Comments: [id number]
== END 2023-01-26 16:59 | disposition home or self-care (01) ==
LOC: LBN 16:58
PROVIDERS: PCP Nurse Practitioner Family; Visit Provider Otolaryngology
DX: C44.311 Basal cell carcinoma of skin of nose (principal); D22.39 Melanocytic nevi of other parts of face
CPT/HCPCS: 88305

== ENCOUNTER 2023-04-18 20:05 | Emergency (ER) | payer OTHER, SELFPAY ==
[2023-04-18 20:07] VITALS: BP 136/72; PULSE 98; RESP 18; TEMP 36.5; O2SAT 99
--- NOTE | 2023-04-18 20:35 | ED.GENADUL_ITS ---
Discharge Plan Disposition Patient Disposition: Home Condition: Stable Discharge Details Clinical Impression: Acute UTI Primary Care Provider: Lovely Sweet ED Provider: Delonte Bonilla Home Meds and New Rx's Prescriptions: New cefpodoxime 100 mg tablet 100 mg PO BID 7 Days Qty: 14 0RF Rx Instructions: must administer with a meal/food phenazopyridine [Pyridium] 100 mg tablet 100 mg PO DAILY 3 Days Qty: 3 0RF No Action acetaminophen [Tylenol Arthritis Pain] 650 mg tablet extended release 650 mg PO Q12H PRN fluoxetine 40 mg capsule 40 mg PO DAILY Qty: 90 4RF trazodone 50 mg tablet 100 mg PO QHS PRN (Reason: sleep) Qty: 30 0RF hydrocortisone [Anusol-HC] 2.5 % cream with perineal applicator 1 applic [place] BID-QID PRN (Reason: hemorrhoids) Qty: 30 0RF diltiazem HCl 240 mg capsule,extended release 24 hr 240 mg PO DAILY Qty: 90 4RF Eliquis 5 mg tablet See Rx Instructions .ROUTE .COMPLEX Qty: 60 11RF Dose Instruction: TAKE 1 TABLET BY MOUTH TWICE DAILY FOR A FIB Rx Instructions: TAKE 1 TABLET BY MOUTH TWICE DAILY FOR A FIB Discharge Instructions Instructions: Urinary Tract Infection in Women (ED) Medical Decision Making 67 yr old female presents with urinary frequency and dysuria for one day, mild right flank pain; no nausea vomiting afebrile nontoxic resting comfortably. Will obtain UA. Consider UTI versus consider early pyelo versus kidney stone. 21: 04 evidence of UTI. Will start on antibiotics and Pyridium. Home care instructions return precautions HPI General Date/Time Provider Initiated Documentation: 04/18/23 20:15 . HPI Narrative: 67-year-old female presents with suprapubic pressure and urinary frequency over the last day. No nausea vomiting fevers or chills. No diarrhea or constipation. Does have slight right back discomfort. No history of kidney stone Related Data Home Medications Medication Instructions Recorded Confirmed acetaminophen 650 mg 650 mg PO Q12H PRN 06/14/19 04/18/23 tablet,extended release (Tylenol Arthritis Pain) hydrocortisone 2.5 % topical cream 1 applic [place] BID-QID PRN 04/09/22 04/18/23 with perineal applicator hemorrhoids #30 grams (Anusol-HC) diltiazem HCl 240 mg capsule,24 240 mg PO DAILY #90 caps 09/11/22 04/18/23 hr,extended release apixaban 5 mg tablet (Eliquis) See Rx Instructions .Route 11/06/22 04/18/23 .COMPLEX #60 tabs fluoxetine 40 mg capsule 40 mg PO DAILY #90 caps 02/04/23 04/18/23 trazodone 50 mg tablet 100 mg PO QHS PRN sleep #30 tabs 02/04/23 04/18/23 cefpodoxime 100 mg tablet 100 mg PO BID 7 days #14 tabs 04/18/23 phenazopyridine 100 mg tablet 100 mg PO DAILY 3 days #3 tabs 04/18/23 (Pyridium) Previous Rx's Medication Instructions Recorded hydrocortisone 2.5 % topical cream 1 applic [place] BID-QID PRN 04/09/22 with perineal applicator hemorrhoids #30 grams (Anusol-HC) diltiazem HCl 240 mg capsule,24 240 mg PO DAILY #90 caps 09/11/22 hr,extended release apixaban 5 mg tablet (Eliquis) See Rx Instructions .Route 11/06/22 .COMPLEX #60 tabs fluoxetine 40 mg capsule 40 mg PO DAILY #90 caps 02/04/23 trazodone 50 mg tablet 100 mg PO QHS PRN sleep #30 tabs 02/04/23 cefpodoxime 100 mg tablet 100 mg PO BID 7 days #14 tabs 04/18/23 phenazopyridine 100 mg tablet 100 mg PO DAILY 3 days #3 tabs 04/18/23 (Pyridium) Allergies Allergy/AdvReac Type Severity Reaction Status Date / Time No Known Allergies Allergy Verified 02/04/23 15:47 General Stated Complaint: Urinary RACHELLE: 4 Review of Systems Narrative: Review of Systems Constitutional: negative Eyes: negative ENT: negative Cardiovascular: negative Respiratory: negative Gastrointestinal: negative : Dysuria, urinary frequency Musculoskeletal: negative Skin: negative Neurologic: negative Psych: negative PFSH All Active Problems (Updated 04/18/23 @ 21:05 by Delonte Bonilla MD) Acute UTI (Acute) Hyperlipidemia (Acute) Basal cell carcinoma (BCC) of skin of nose (Acute) Skin lesion of face (Acute) Alcohol intake above recommended sensible limits (Acute) Insomnia (Acute) Atrial fibrillation by electrocardiogram (Acute) First dx on EKG 5/21/19 Anxiety (Chronic 01/18/14) Depression (Chronic 01/18/14) Medical History Anxiety Depression Seborrheic keratoses Under left clavicle and on right upper arm Tear of medial meniscus of left knee, current Urinary frequency (10/12/12) Surgical History History of appendectomy Family History Mother , 89 No problems noted. Father , 74 Throat cancer Heart disease Brother No problems noted. Son No problems noted. Daughter No problems noted. Daughter No problems noted. Maternal Grandfather , age 87 No problems noted. Paternal Grandfather , age 80 No problems noted. Maternal Grandmother , age 84 No problems noted. Paternal Grandmother , age 75 No problems noted. Social History (Updated 02/06/23 @ 10:50 by Marika Ko) Smoking/Tobacco Use Status: Never Second Hand Exposure: No Smoking risk assessment performed?: Yes Alcohol Intake: current Alcohol Intake frequency: a few times a week Alcohol type: beer Drug use: Never Substance use type: does not use Caregiver/Support person: No Household members: spouse Housing: house Communication Needs: None Do you need help understanding health information?: Never Pets and animals: Yes Pets and animals: dog(s) Sexually active: Yes Do you think of yourself as: straight/heterosexual Current gender identity: female What is your relationship status?: How often do you talk on the phone with friends or family?: three or more times per week How often do you get together with friends or relatives?: twice per week How often do you attend anabaptism or episcopal services?: decline to answer Do you belong to any clubs or organized social groups?: no Panel score (0-1 are the most socially isolated patients): 2 What type of physical activity do you participate in: walking Duration: 15-30 minutes/day Frequency: 1-2 times per week Jen/Rastafarian: None Special jen needs: No Seatbelt use: always Helmet use: No Drive intox or ride w/intox concrete mixer truck driver: No Do you feel safe at home: Yes Do you feel safe in your relationship?: Yes Exam Narrative Exam Narrative: Physical Examination General: alert, awake, cooperative, resting comfortably, no acute distress HEENT: normocephalic, atraumatic; PERRL, EOM intact, conjunctiva normal; no nasal discharge; moist mucous membranes, oral and pharyngeal mucosa normal, tolerating secretions Neck: supple, trachea midline; full ROM Chest: normal to inspection Respiratory: normal respiratory effort, speaking in full sentences, clear to auscultation, no wheezing, rales or rhonchi Cardiac: regular rate, regular rhythm, S1S2 intact, no murmurs rubs or gallops GI: abdomen soft, non-tender, non-distended; no palpable mass or hepatosplenomegaly Skin: no lesions, rashes or trauma appreciated Neuro: AAOx3, normal speech, moving all extremities Psych: Appropriate mood and affect Course Vital Signs Vital signs: Vital Signs Temperature 36.5 C 04/18/23 20:07 Pulse 98 H 04/18/23 20:07 Respiratory Rate 18 04/18/23 20:07 Blood Pressure 136/72 04/18/23 20:07 Pulse Oximetry 99 04/18/23 20:07 Temperature 36.5 C 04/18/23 20:07 Temperature Source Temporal Artery Scan 04/18/23 20:07 Pulse 98 H 04/18/23 20:07 Respiratory Rate 18 04/18/23 20:07 Respiratory Effort Normal, Non-Labored 04/18/23 20:10 Blood Pressure 136/72 04/18/23 20:07 Blood Pressure Position Sitting 04/18/23 20:07 Pulse Oximetry 99 04/18/23 20:07 Oxygen Delivery Method Room Air 04/18/23 20:07 Oxygen Flow Rate 0 04/18/23 20:07 Pain Level 5 04/18/23 20:07 PAWSS Have you Been Recently Intoxicated or Drunk Within the Last 30 days?: No Have you Ever Experienced Previous Episodes of Alcohol Withdrawal?: No Have you ever Experienced Withdrawal Seizures?: No Have you ever Experienced Delirium Tremens(DT)s?: No Have you ever undergone Alcohol Rehabilitation Treatment (i.e, inpt ot outpatient treatment programs)?: No Have you ever Experienced Blackouts?: No Have you ever Combined Alcohol with other Downers within the last 90 days?: No Have you ever Combined Alcohol with any other Substance of Abuse during the last 90 days?: No Positive Blood Alcohol level on Presentation? [PCS.BAL]: No Evidence of Increased Autonomic Activity (i.e. HR>120, tremor, sweating, agitation, nausea)?: No Result: 0
[2023-04-18 20:45] LABS: Bilirubin Negative (Negative); Blood Large (Negative); Clarity Cloudy (Clear); Glucose Negative (Negative); Ketones Trace mg/dL (Negative); Leukocyte Esterase Small (Negative); Nitrite Positive (Negative); Specific Gravity >= 1.030 (1.005-1.025); Urobilinogen 0.2 mg/dL (Up to 0.2); pH 5.5 (5-8)
[2023-04-18 20:55] LABS: Bacteria Moderate HPF (Negative); C & S Indicated? Yes; Casts Negative LPF (Negative); Crystals Negative HPF (Negative); Epithelial Cells Few HPF (Negative); Mucus Negative (Negative); Other Cells Few Transitional (Negative); RBC 20-50 HPF (0-2); WBC >50 HPF (0-5)
[2023-04-18] MEDS: Phenazopyridine 100 MG TAB PO (21:00)
[2023-04-18] MEDS: Cefpodoxime 200 MG TAB PO (21:00)
== END 2023-04-18 21:11 | disposition home or self-care (01) ==
PROVIDERS: Emergency Provider Emergency Medicine; PCP Nurse Practitioner Family
DX: N39.0 Urinary tract infection, site not specified (principal); E78.5 Hyperlipidemia, unspecified; I48.91 Unspecified atrial fibrillation; Z79.01 Long term (current) use of anticoagulants
CPT/HCPCS: 87077; 99283; 81003; 81015; 87086; 87186

== ENCOUNTER 2023-05-02 19:59 | Emergency (ER) | payer OTHER, SELFPAY ==
[2023-05-02 20:36] VITALS: BP 116/60; PULSE 90; RESP 14; TEMP 36.7; O2SAT 97
--- NOTE | 2023-05-02 20:48 | ED.GENADUL_ITS ---
Discharge Plan Disposition Patient Disposition: Home Condition: Stable Discharge Details Clinical Impression: Acute UTI Primary Care Provider: Lovely Sweet ED Provider: Yaz Madrigal Home Meds and New Rx's Prescriptions: New ciprofloxacin HCl 500 mg tablet 500 mg PO BID Qty: 14 0RF Continued acetaminophen [Tylenol Arthritis Pain] 650 mg tablet extended release 650 mg PO Q12H PRN fluoxetine 40 mg capsule 40 mg PO DAILY Qty: 90 4RF trazodone 50 mg tablet 100 mg PO QHS PRN (Reason: sleep) Qty: 30 0RF hydrocortisone [Anusol-HC] 2.5 % cream with perineal applicator 1 applic [place] BID-QID PRN (Reason: hemorrhoids) Qty: 30 0RF diltiazem HCl 240 mg capsule,extended release 24 hr 240 mg PO DAILY Qty: 90 4RF Eliquis 5 mg tablet See Rx Instructions .ROUTE .COMPLEX Qty: 60 11RF Dose Instruction: TAKE 1 TABLET BY MOUTH TWICE DAILY FOR A FIB Rx Instructions: TAKE 1 TABLET BY MOUTH TWICE DAILY FOR A FIB Discharge Instructions Instructions: Urinary Tract Infection in Women (ED) Additional Instructions: Push fluids to stay well-hydrated Referrals: Lovely Sweet, ALBINO [Primary Care Provider] - Medical Decision Making Patient presents with urinary tract infection most likely lower as she has no flank pain fever chills nausea or vomiting will obtain urinalysis. Was recently treated for a pansensitive E. coli UTI. Urine is obtained and grossly positive for urinary tract infection. I did want to obtain a CAT scan without contrast to check for obstructive uropathy but she would prefer just trying treatment again and following up if it reoccurs a third time. She denies any fever nausea or again or flank pain. I do think this is reasonable and will discontinue the CAT scan I did advise that she follow-up with her primary care provider for further evaluation Medical Records Medical records reviewed: Yes I reviewed the patient's medical records. Lab Data Lab results reviewed: Yes I reviewed the patient's lab results. Labs: 05/02/23 21:18 Urine - Reflex from Ua Urine Culture - Pending Laboratory Tests Range/Units 05/02/23 21:18 Urine Color (Yellow) Yellow Urine Clarity (Clear) Cloudy Urine pH (5-8) 5.5 Ur Specific [place] (1.005-1.025) >= 1.030 H Urine Protein (Negative) mg/dL 30 H Urine Ketones (Negative) mg/dL Trace H Urine Blood (Negative) Moderate H Urine Nitrite (Negative) Positive H Urine Bilirubin (Negative) Negative Urine Urobilinogen (Up to 0.2) mg/dL 0.2 Ur Leukocyte Esterase (Negative) Moderate H Urine RBC (0-2) HPF 0-2 Urine WBC (0-5) HPF 20-50 H Ur Epithelial Cells (Negative) HPF Rare Urine Crystals (Negative) HPF Negative Urine Bacteria (Negative) HPF Many Urine Casts (Negative) LPF Negative Urine Mucus (Negative) Negative Urine Other (Negative) Rare Transitional Ur Culture Indicated? Yes Urine Glucose (Negative) mg/dL Negative HPI General Mode of arrival: ambulatory . Date/Time Provider Initiated Documentation: 05/02/23 20:00 . Limitations to Documentation: no limitations . Information obtained by: patient . HPI Narrative: Presents with complaints of urinary frequency urgency and dysuria. She has had similar history with urinary tract infection. There is no flank pain fever or sign of systemic infection. She was treated for pansensitive E. coli with 1 week of cefpodoxime and returns with recurrent symptoms Related Data Home Medications Medication Instructions Recorded Confirmed acetaminophen 650 mg 650 mg PO Q12H PRN 06/14/19 04/18/23 tablet,extended release (Tylenol Arthritis Pain) hydrocortisone 2.5 % topical cream 1 applic [place] BID-QID PRN 04/09/22 04/18/23 with perineal applicator hemorrhoids #30 grams (Anusol-HC) diltiazem HCl 240 mg capsule,24 240 mg PO DAILY #90 caps 09/11/22 04/18/23 hr,extended release apixaban 5 mg tablet (Eliquis) See Rx Instructions .Route 11/06/22 04/18/23 .COMPLEX #60 tabs fluoxetine 40 mg capsule 40 mg PO DAILY #90 caps 02/04/23 04/18/23 trazodone 50 mg tablet 100 mg PO QHS PRN sleep #30 tabs 02/04/23 04/18/23 ciprofloxacin HCl 500 mg tablet 500 mg PO BID #14 tabs 05/02/23 Previous Rx's Medication Instructions Recorded hydrocortisone 2.5 % topical cream 1 applic [place] BID-QID PRN 04/09/22 with perineal applicator hemorrhoids #30 grams (Anusol-HC) diltiazem HCl 240 mg capsule,24 240 mg PO DAILY #90 caps 09/11/22 hr,extended release apixaban 5 mg tablet (Eliquis) See Rx Instructions .Route 11/06/22 .COMPLEX #60 tabs fluoxetine 40 mg capsule 40 mg PO DAILY #90 caps 02/04/23 trazodone 50 mg tablet 100 mg PO QHS PRN sleep #30 tabs 02/04/23 ciprofloxacin HCl 500 mg tablet 500 mg PO BID #14 tabs 05/02/23 Allergies Allergy/AdvReac Type Severity Reaction Status Date / Time No Known Allergies Allergy Verified 02/04/23 15:47 General Stated Complaint: Urinary RACHELLE: 3 Review of Systems All systems reviewed & are unremarkable except as noted in HPI and below PFSH All Active Problems (Updated 05/02/23 @ 21:47 by Yaz Madrigal NP) Acute UTI (Acute) Hyperlipidemia (Acute) Basal cell carcinoma (BCC) of skin of nose (Acute) Skin lesion of face (Acute) Alcohol intake above recommended sensible limits (Acute) Insomnia (Acute) Atrial fibrillation by electrocardiogram (Acute) First dx on EKG 01/24/19 Anxiety (Chronic 01/18/14) Depression (Chronic 01/18/14) Medical History Anxiety Depression Seborrheic keratoses Under left clavicle and on right upper arm Tear of medial meniscus of left knee, current Urinary frequency (10/12/12) Surgical History History of appendectomy Family History Mother , 89 No problems noted. Father , 74 Throat cancer Heart disease Brother No problems noted. Son No problems noted. Daughter No problems noted. Daughter No problems noted. Maternal Grandfather , age 87 No problems noted. Paternal Grandfather , age 80 No problems noted. Maternal Grandmother , age 84 No problems noted. Paternal Grandmother , age 75 No problems noted. Social History (Updated 02/06/23 @ 10:50 by Marika Ko) Smoking/Tobacco Use Status: Never Second Hand Exposure: No Smoking risk assessment performed?: Yes Alcohol Intake: current Alcohol Intake frequency: a few times a week Alcohol type: beer Drug use: Never Substance use type: does not use Caregiver/Support person: No Household members: spouse Housing: house Communication Needs: None Do you need help understanding health information?: Never Pets and animals: Yes Pets and animals: dog(s) Sexually active: Yes Do you think of yourself as: straight/heterosexual Current gender identity: female What is your relationship status?: How often do you talk on the phone with friends or family?: three or more times per week How often do you get together with friends or relatives?: twice per week How often do you attend synagogue or anglican services?: decline to answer Do you belong to any clubs or organized social groups?: no Panel score (0-1 are the most socially isolated patients): 2 What type of physical activity do you participate in: walking Duration: 15-30 minutes/day Frequency: 1-2 times per week Ejn/Taoism: None Special jen needs: No Seatbelt use: always Helmet use: No 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 Do you feel safe at home: Yes Do you feel safe in your relationship?: Yes Exam Const General: cooperative, healthy appearing and comfortable Nutritional Appearance: overweight Orientation: alert, awake and oriented x3 HENMT Head: normal to inspection, normocephalic and atraumatic Mouth: oral mucosae normal Chest Chest: normal inspection of the chest Resp Effort & Inspection: normal respiratory effort Cardio Rate: regular rate Rhythm: regular rhythm GI Inspection: normal to inspection Palpation: soft Skin General skin exam: no rashes or lesions noted Neuro General: patient alert, patient awake and patient oriented x3 Motor: muscle tone normal throughout Extrem General: normal to inspection and full ROM Course Vital Signs Vital signs: Vital Signs Temperature 36.7 C 05/02/23 20:36 Pulse 90 05/02/23 20:36 Respiratory Rate 14 05/02/23 20:36 Blood Pressure 116/60 05/02/23 20:36 Pulse Oximetry 97 05/02/23 20:36 Temperature 36.7 C 05/02/23 20:36 Temperature Source Temporal Artery Scan 05/02/23 20:36 Pulse 90 05/02/23 20:36 Respiratory Rate 14 05/02/23 20:36 Blood Pressure 116/60 05/02/23 20:36 Blood Pressure Position Sitting 05/02/23 20:36 Pulse Oximetry 97 05/02/23 20:36 Oxygen Delivery Method Room Air 05/02/23 20:36 Oxygen Flow Rate 0 05/02/23 20:36
[2023-05-02 21:23] LABS: Bilirubin Negative (Negative); Blood Moderate (Negative); Clarity Cloudy (Clear); Glucose Negative (Negative); Ketones Trace mg/dL (Negative); Leukocyte Esterase Moderate (Negative); Nitrite Positive (Negative); Specific Gravity >= 1.030 (1.005-1.025); Urobilinogen 0.2 mg/dL (Up to 0.2); pH 5.5 (5-8)
[2023-05-02 21:38] LABS: Bacteria Many HPF (Negative); Epithelial Cells Rare HPF (Negative); Other Cells Rare Transitional (Negative); RBC 0-2 HPF (0-2); WBC 20-50 HPF (0-5)
[2023-05-02 21:39] LABS: C & S Indicated? Yes; Casts Negative LPF (Negative); Crystals Negative HPF (Negative); Mucus Negative (Negative)
[2023-05-02] MEDS: Ciprofloxacin 500 MG TAB PO (21:56)
[2023-05-02 21:58] VITALS: BP 118/64; PULSE 88; RESP 14; O2SAT 98
== END 2023-05-02 21:59 | disposition home or self-care (01) ==
PROVIDERS: Emergency Provider Nurse Practitioner Acute Care; PCP Nurse Practitioner Family
DX: N39.0 Urinary tract infection, site not specified; Z87.440 Personal history of urinary (tract) infections; B96.20 Unspecified Escherichia coli [E. coli] as the cause of diseases classified elsewhere
CPT/HCPCS: 87077; 99283; 81003; 81015; 87086; 87186; 99284

== ENCOUNTER 2023-11-03 14:48 | Outpatient (CLI) | payer OTHER, SELFPAY ==
[2023-11-03 14:48] LABS: HCT 46.9 % (36.0-46.0); HGB 15.7 g/dL (11.2-15.7); MCH 32.6 pg (27.0-33.0); MCHC 33.5 % (32.0-36.0); MCV 98 fL (80-95); MPV 9.3 fL (8.0-11.0); Platelet Count 273 10^3/uL (130-400); RBC 4.81 10^6/uL (3.93-5.22); RDW 12.5 % (11.7-14.6); RDW-SD 45.2 fL; WBC 4.75 10^3/uL (4.4-10.8)
[2023-11-03 15:47] LABS: Anion Gap 10.4 mmol/L (3-11); BUN 8 mg/dL (7-18); CO2 28.6 mmol/L (21.0-32.0); CREATININE 0.9 mg/dL (0.55-1.02); Calcium 9.6 mg/dL (8.5-10.1); Calculated LDL 132 mg/dL (<100); Chloride 102 mmol/L (98-107); Cholesterol 271 mg/dL (<200); Estimated GFR 68.77 (mL/min/1.73m2); Glucose 112 mg/dL (74-106); HDL Cholesterol 61 mg/dL (40-60); Sodium 141 mmol/L (136-145); Triglyceride 393 mg/dL (<150)
== END 2023-11-03 14:49 | disposition home or self-care (01) ==
LOC: LBO 14:49
PROVIDERS: PCP Nurse Practitioner Family; Visit Provider Nurse Practitioner Family
DX: E78.5 Hyperlipidemia, unspecified (principal); I48.91 Unspecified atrial fibrillation; F41.8 Other specified anxiety disorders; F32.89 Other specified depressive episodes; G47.00 Insomnia, unspecified; C44.311 Basal cell carcinoma of skin of nose
CPT/HCPCS: 36415; 80048; 80061; 85027

== ENCOUNTER → 2024-03-03 00:47 | Outpatient (CLI) | payer OTHER, SELFPAY ==
--- NOTE | 2024-03-03 14:45 | DI.US_ITS ---
APPROVED REPORT EXAM: Comprehensive 2D, Doppler, and color-flow Echocardiogram Patient Location: Out-Patient Extractor Machine Operator: Pillo Cartagena RDCS (AE) Indications: A fib Conclusion Normal left ventricular wall thickness and chamber size. Ejection fraction is 60%. Wall motion is n ormal Moderately dilated right atrium and right ventricle Normal left atrial size There are no structural valvular abnormalities Moderate tricuspid regurgitation. Estimated right ventricular systolic pressure is 37 mmHg Mildly dilated aortic root and ascending aorta Wall motion Left Ventricle The left ventricle is normal size. The left ventricular systolic function is normal. The left ventric ular ejection fraction is within the normal range. There is normal left ventricular wall thickness. T here is normal LV segmental wall motion. There is no ventricular septal defect visualized. LVEF is 60 %. Right Ventricle Right ventricle is moderately dilated. Right ventricular systolic function could not be assessed. Atria The left atrium size is normal. Right atrium is moderately dilated. The interatrial septum is intact with no evidence for an atrial septal defect. Aortic Valve The aortic valve is normal in structure. Aortic valve is trileaflet. There is no aortic valvular sten osis. No aortic regurgitation is present. Mitral Valve The mitral valve is normal in structure. No evidence of mitral valve stenosis. Mild mitral regurgitat ion. Tricuspid Valve The tricuspid valve is normal in structure. There is no tricuspid valve stenosis. Moderate tricuspid regurgitation. The RVSP is 37 mmHg. Pulmonic Valve The pulmonary valve is normal in structure. There is no pulmonic valvular stenosis. There is no pulmo ana valvular regurgitation. Great Vessels Aortic root is mildly dilated. The ascending aorta is mildly dilated. Aortic arch is normal in calib er. IVC is normal in size and collapses >50% with inspiration. Pericardium There is no pericardial effusion. 2D Dimensions IVSD d PLAX 0.90 cm F: 0.6-1.0 Ao Root d 3.55 cm F: 2.7 - 3.3 LVPW d PLAX 0.92 cm F: 0.6 - 1.0 Ao Asc Diam d 3.43 cm F: 2.3 - 3.1 LVID d PLAX 4.40 cm F: 3.8 - 5.2 LVDs 2.99 cm F: 2.2 - 3.5 LV EF Teichholz 60.2 % FS 31.91 % LV EDV (Teich) 87.5 mL LV ESV (Teich) 34.8 mL Stroke Vol Index (Teich) 26.48 M-Mode TAPSE 2.00 cm (M/F) >1.7 Auto EF LV EDV A4C 75.4 mL LV EDV A2C 82.4 mL LV EDV BP 79.6 mL LV ESV A4C 30.1 mL LV ESV A2C 32.9 mL LV ESV BP 30.7 mL LVEF(%) A4C 60.0 % LVEF(%) A2C 60.1 % LVEF(%) BP 61.4 % LV SV A4C 45.3 ml LV SV A2C 49.5 ml LV SV BP 48.9 ml LV CO A4C 3.6 L/min LV CO A2C 4.2 L/min LV CO BP 3.9 L/min HR A4C 78.77 BPM HR A2C 84.71 BPM LV EDV Index (BP) LA Volume LA Length A4C 4.7 cm LA Length A2C 5.7 cm LA Area A4C s 15.41 cm2 LA Area A2C s 19.51 cm2 LA Vol A4C A-L 42.92 mL LA Vol A2C A-L 56.85 mL LA Vol Biplane A-L 54.3 mL LA Vol/BSA A4C A-L LA Vol/BSA A2C A-L LA Vol/BSA BP A-L 27.3 mL/m2 LA Vol A4C MOD 40.0 mL LA Vol A2C MOD 53.9 mL LA Vol BP MOD 50.7 mL RA Volume RA Area A4C 23.9 cm2 RA ESV A4C (A-L) 96.5mL RA Vol/BSA A4C A-L RA Length A4C 5.0 cm RA ESV A4C (MOD) 90.6mL LV Diastology MV E' medial 0.123 (>0.07 m/s) MV E Vmax 0.95 (0.4-1.3 m/s) MV E' lateral 0.120 (>0.1 m/s) Aortic Valve AoV Vmax 1.02 m/s LVOT Vmax 0.95 m/s AoV Peak Grad 4.1 mmHg LVOT Peak Grad 3.6 mmHg AoV Area (Vmax) 1.92 cm2 LVOT VTI 0.187 m AoV VTI 0.194 m LVOT Mean Grad 2.0 mmHg AoV Mean Chal[place]. 0.73 m/s LVOT SV 38.49 mL AoV Mean Grad 2.4 mmHg LVOT Diam s 1.60 cm AoV Area (VTI) 1.98 cm2 Velocity Ratio 0.93 Pulmonary Valve PV Vmax 0.92 (0.5-1.5 m/s) RVOT Vmax 0.46 m/s PV Peak Grad 3.4 mmHg RVOT Peak Gr. 0.8 mmHg PV Mean [place] 0.57 m/s RVOT VTI 0.075 m PV Mean Grad 1.5 mmHg RVOT Mean Gr. 0.5 mmHg Tricuspid Valve RA Pressure 3.00 mmHg TR Vmax 2.93 m/s TR Peak Grad 34.3 mmHg RVSP (TR) 37.4 mmHg
== END ==
PROVIDERS: PCP Nurse Practitioner Family; Visit Provider Nurse Practitioner Family
DX: I48.91 Unspecified atrial fibrillation (principal)
CPT/HCPCS: 93306

== ENCOUNTER 2024-03-15 19:51 | Emergency (ER) | payer OTHER, SELFPAY ==
[2024-03-15 20:04] VITALS: BP 140/98; PULSE 78; RESP 16; TEMP 36.8; O2SAT 98
[2024-03-15 20:38] LABS: Bilirubin Negative (Negative); Blood Moderate (Negative); Clarity Cloudy (Clear); Glucose Negative (Negative); Ketones Negative (Negative); Leukocyte Esterase Moderate (Negative); Nitrite Positive (Negative); Specific Gravity >= 1.030 (1.005-1.025); Urobilinogen 0.2 mg/dL (Up to 0.2)
[2024-03-15 20:42] LABS: Bacteria Moderate HPF (Negative); C & S Indicated? Yes; Crystals Negative HPF (Negative); Epithelial Cells Rare HPF (Negative); Mucus Negative (Negative)
[2024-03-15 20:43] LABS: WBC 20-50 HPF (0-5)
--- NOTE | 2024-03-15 21:14 | W.ED.GENAD ---
Discharge Plan Disposition Patient Disposition: Home Condition: Good Discharge Details Clinical Impression: Acute UTI Primary Care Provider: Lovely Sweet ED Provider: Stanley Jack Home Meds and New Rx's Prescriptions: New ciprofloxacin HCl [Cipro] 500 mg tablet 500 mg PO BID 7 Days Qty: 14 0RF No Action acetaminophen [Tylenol Arthritis Pain] 650 mg tablet extended release 650 mg PO Q12H PRN fluoxetine 40 mg capsule 40 mg PO DAILY Qty: 90 4RF diltiazem HCl 240 mg capsule,extended release 24 hr 240 mg PO DAILY Qty: 90 4RF atorvastatin 20 mg tablet 20 mg PO QHS Qty: 90 1RF Eliquis 5 mg tablet See Rx Instructions .ROUTE .COMPLEX Qty: 60 11RF Dose Instruction: TAKE 1 TABLET BY MOUTH TWICE DAILY FOR A FIB Rx Instructions: TAKE 1 TABLET BY MOUTH TWICE DAILY FOR A FIB hydrocortisone [Anusol-HC] 2.5 % cream with perineal applicator 1 applic FL BID-QID PRN (Reason: hemorrhoids) Qty: 30 0RF Discharge Instructions Instructions: Urinary Tract Infection, Adult ED Additional Instructions: At this time you have evidence of urinary tract infection. Please take the Cipro as directed. Is been sent to your pharmacy on file. Please drink plenty of fluids and stay well-hydrated. Please take cranberry concentrate to help with the infection. If you notice any worsening of your symptoms, or any new symptoms such as vomiting, diarrhea, fever, chills, shortness of breath, chest pain, numbness, weakness, or fainting , please return immediately to the emergency department for reevaluation. Please follow up with your primary care provider as soon as possible for reassessment and reevaluation. As always, it was a pleasure participating in your medical care today. Referrals: Lovely Sweet NP [Primary Care Provider] - [facility] General Date/Time Provider Initiated Documentation: 03/15/24 20:08. HPI Narrative: Pleasant 68-year-old female with a past medical history of diabetes, A-fib on Eliquis, previous UTIs presents today for evaluation of urinary pressure for the last 2 days. Patient denies any urinary frequency. She denies any burning or blood. She states that this is identical to her last UTI symptoms. Last time she had a urinary tract infection was a year ago. She did not have success with cefpodoxime even though her cultures returned positive for pansensitive E. coli. She was started on Cipro and had good success with this. She denies any flank pain, fever chills or other complaints. She is not taking any medications at this time for treatment. Related Data Home Medications Medication Instructions Recorded Confirmed acetaminophen 650 mg 650 mg PO Q12H PRN 06/14/19 03/15/24 tablet,extended release (Tylenol Arthritis Pain) fluoxetine 40 mg capsule 40 mg PO DAILY #90 caps 02/04/23 03/15/24 diltiazem HCl 240 mg capsule,24 240 mg PO DAILY #90 caps 09/17/23 03/15/24 hr,extended release atorvastatin 20 mg tablet 20 mg PO QHS #90 tabs 11/08/23 03/15/24 apixaban 5 mg tablet (Eliquis) See Rx Instructions .Route 12/06/23 03/15/24 .COMPLEX #60 tabs hydrocortisone 2.5 % topical cream 1 applic FL BID-QID PRN 01/13/24 03/15/24 with perineal applicator hemorrhoids #30 grams (Anusol-HC) ciprofloxacin HCl 500 mg tablet 500 mg PO BID 7 days #14 tabs 03/15/24 (Cipro) Previous Rx's Medication Instructions Recorded fluoxetine 40 mg capsule 40 mg PO DAILY #90 caps 02/04/23 diltiazem HCl 240 mg capsule,24 240 mg PO DAILY #90 caps 09/17/23 hr,extended release atorvastatin 20 mg tablet 20 mg PO QHS #90 tabs 11/08/23 apixaban 5 mg tablet (Eliquis) See Rx Instructions .Route 12/06/23 .COMPLEX #60 tabs hydrocortisone 2.5 % topical cream 1 applic FL BID-QID PRN 01/13/24 with perineal applicator hemorrhoids #30 grams (Anusol-HC) ciprofloxacin HCl 500 mg tablet 500 mg PO BID 7 days #14 tabs 03/15/24 (Cipro) Allergies Allergy/AdvReac Type Severity Reaction Status Date / Time No Known Allergies Allergy Verified 02/10/24 15:25 General Stated Complaint: Urinary RACHELLE: 4 Review of Systems All systems reviewed & are unremarkable except as noted in HPI and below Exam Narrative Exam Narrative: 1.Const: Well-nourished, Well-developed, appearing stated age 2.Eyes: PERRL, no conjunctival injection, and symmetrical lids. 3.ENT: Atraumatic external nose and ears. Moist MM. Neck: Symmetric, trachea midline, No thyromegaly. 4.CVS: +S1/S2, No murmurs or gallops. Peripheral pulses 2+ and equal in all extremities. Brisk capillary refill in all extremities. 5.RESP: Unlabored respiratory effort. Clear to auscultation bilaterally. No wheezes rales or rhonchi 6.GI: Soft, Nontender/Nondistended, No hepatosplenomegaly. No guarding or rebound. No flank or CVA tenderness 7.MSK: Normocephalic/Atraumatic, Extremities w/o deformity or ttp No cyanosis or clubbing, Normal movement of all extremities 8.Skin: Warm, Dry. No rashes or lesions. 9.Neuro: tube former operator II-XII grossly intact. Sensation grossly intact, no focal neurologic deficits. 10.Psych: (AAO) x3. Appropriate mood and affect Course Vital Signs Vital signs: Vital Signs Temperature 36.8 C 03/15/24 20:04 Pulse 78 03/15/24 20:04 Respiratory Rate 16 03/15/24 20:04 Blood Pressure 140/98 H 03/15/24 20:04 Pulse Oximetry 98 03/15/24 20:04 Temperature 36.8 C 03/15/24 20:04 Pulse 78 03/15/24 20:04 Respiratory Rate 16 03/15/24 20:04 Respiratory Effort Normal 03/15/24 20:08 Blood Pressure 140/98 H 03/15/24 20:04 Pulse Oximetry 98 03/15/24 20:04 Pain Level 3 03/15/24 20:04 Lab/Test Results Lab/Test Results: 03/15/24 20:05 Urine - Reflex from Ua Urine Culture - Pending Laboratory Tests Range/Units 03/15/24 20:05 Urine Color (Yellow) Yellow Urine Clarity (Clear) Cloudy Urine pH (5-8) 6.0 Ur Specific [place] (1.005-1.025) >= 1.030 H Urine Protein (Neg-Trace) mg/dL 100 H Urine Ketones (Negative) mg/dL Negative Urine Blood (Negative) Moderate H Urine Nitrite (Negative) Positive H Urine Bilirubin (Negative) Negative Urine Urobilinogen (Up to 0.2) mg/dL 0.2 Ur Leukocyte Esterase (Negative) Moderate H Urine RBC (0-2) HPF 10-20 H Urine WBC (0-5) HPF 20-50 H Ur Epithelial Cells (Negative) HPF Rare Urine Crystals (Negative) HPF Negative Urine Bacteria (Negative) HPF Moderate Urine Mucus (Negative) Negative Ur Culture Indicated? Yes Urine Glucose (Negative) mg/dL Negative Medical Decision Making Pleasant 68-year-old female with a past medical history of diabetes, A-fib on Eliquis, previous UTIs presents today for evaluation of urinary pressure for the last 2 days. Patient denies any urinary frequency. She denies any burning or blood. She states that this is identical to her last UTI symptoms. Last time she had a urinary tract infection was a year ago. She did not have success with cefpodoxime even though her cultures returned positive for pansensitive E. coli. She was started on Cipro and had good success with this. She denies any flank pain, fever chills or other complaints. She is not taking any medications at this time for treatment. Exam demonstrates well-appearing female, no signs of pyelonephritis with CVA tenderness, no tachycardia or fever. Urinalysis positive for nitrites leuk esterase and 20-50 WBCs. We will start her on Cipro for treatment of this. Patient is otherwise stable. Discussed red flags which return. I have extensively reviewed the treatment plan and discharge instructions with the patient. I have addressed all patient concerns at this time. The patient was made aware of what symptoms to monitor for that would warrant a return to the emergency department. Discussed the plan with the patient, they demonstrate verbal understanding and agreement with our assessment and plan at this time. The documentation in this chart was dictated using [employer] dictation software. Please excuse any dictation errors. Quality:SDOH Health Related Social Needs: No Data to Display PFSH All Active Problems Acute UTI (Acute) Hyperlipidemia (Acute) Basal cell carcinoma (BCC) of skin of nose (Acute) Skin lesion of face (Acute) Alcohol intake above recommended sensible limits (Acute) Insomnia (Acute) Atrial fibrillation by electrocardiogram (Acute) First dx on EKG 01/24/19 Anxiety (Chronic 01/18/14) Depression (Chronic 01/18/14) Medical History Seborrheic keratoses Under left clavicle and on right upper arm Tear of medial meniscus of left knee, current Depression Anxiety Urinary frequency (10/12/12) Surgical History History of appendectomy Family History Mother , 89 No problems noted. Father , 74 Throat cancer Heart disease Brother No problems noted. Son No problems noted. Daughter No problems noted. Daughter No problems noted. Maternal Grandfather , age 87 No problems noted. Paternal Grandfather , age 80 No problems noted. Maternal Grandmother , age 84 No problems noted. Paternal Grandmother , age 75 No problems noted. Social History Smoking/Tobacco Use Status: Never Second Hand Exposure: No Smoking risk assessment performed?: Yes Alcohol Intake: current Alcohol Intake frequency: a few times a week Alcohol type: beer Drug use: Never Substance use type: does not use Adopted: No Caregiver/Support person: No Household members: spouse Housing: house Number of Children: 3 number of grandchildren: 6 Communication Needs: None Education Level: high school Do you need help understanding health information?: Never current occupation: Retired Pets and animals: Yes Pets and animals: dog(s) Sexually active: Yes Do you think of yourself as: straight/heterosexual Current gender identity: female What is your relationship status?: How often do you talk on the phone with friends or family?: three or more times per week How often do you get together with friends or relatives?: once per week How often do you attend druze or yazdanism services?: decline to answer Do you belong to any clubs or organized social groups?: no Panel score (0-1 are the most socially isolated patients): 2 What type of physical activity do you participate in: walking Duration: 15-30 minutes/day Jen/Advent: None Special jen needs: No Seatbelt use: always Helmet use: No Drive intox or ride w/intox home delivery driver: No Firearms in home: No Do you feel safe at home: Yes Do you feel safe in your relationship?: Yes Victim of physical abuse: No Victim of emotional abuse: No Victim of sexual abuse: No Would you like helpful sources: No
[2024-03-15 21:23] VITALS: BP 125/86; PULSE 95; RESP 20; TEMP 36.3; O2SAT 98
--- NOTE | 2024-03-16 16:07 | NUR.NOTE ---
Accessed chart to see medication order on discharge. Patient called asking to have prescription moved to different pharmacy and was unable to remember name of medication. Nursing Note:
--- NOTE | 2024-03-16 16:21 | NUR.NOTE ---
Nursing Note: Received call from patient that her pharmacy is closed and flooded. Prescription for Ciprofloxacin was verbally called into the Pharmacist at [place], [place]. Pt was updated
== END 2024-03-15 21:36 | disposition home or self-care (01) ==
PROVIDERS: Nurse Practitioner Family; Emergency Provider Student in an Organized Health Care Education/Training Program; PCP Nurse Practitioner Family
DX: R35.0 Frequency of micturition (principal); R39.15 Urgency of urination; N39.0 Urinary tract infection, site not specified
CPT/HCPCS: 87077; 99283; 81003; 81015; 87086; 87186

== ENCOUNTER 2024-04-03 07:58 | Outpatient (CLI) | payer OTHER, SELFPAY ==
--- NOTE | 2024-04-03 07:45 | RT.EKG_ITS ---
APPROVED REPORT Exam: Resting ECG Reason for Exam: AFIB Patient Location: O HR:95 bpm ECG Measurements Heart Rate 95 AXIS CA [id number] P [id number] QRSd 99 QRS 4 QT 362 T -19 QTc 455 Conclusion Atrial fibrillation...V-rate 68-122, irreg A-activity Low voltage, precordial leads...precordial leads <1.0mV
== END 2024-04-03 07:59 | disposition home or self-care (01) ==
LOC: DI.CARD 07:59
PROVIDERS: PCP Nurse Practitioner Family; Visit Provider Internal Medicine Cardiovascular Disease
DX: I48.91 Unspecified atrial fibrillation (principal)
CPT/HCPCS: 93010

== ENCOUNTER → 2024-04-03 13:42 | Outpatient (BNVA) | payer OTHER, SELFPAY | PROVIDERS: PCP Nurse Practitioner Family; Referring Provider Nurse Practitioner Family; Visit Provider Internal Medicine Cardiovascular Disease | DX: I48.91 Unspecified atrial fibrillation (principal) | CPT/HCPCS: 93005; 99214 ==

== ENCOUNTER 2024-04-06 14:42 | Outpatient (CLI) | payer OTHER, SELFPAY ==
--- NOTE | 2024-04-06 14:19 | DI.RAD_ITS ---
Exam(s) XR KNEE LT 4V AP,LAT,RICHARD,PAT EXAM: XR KNEE LT 4V AP,LAT,RICHARD,PAT CLINICAL HISTORY: knee pain. TECHNIQUE: 2D digital imaging was performed. Three views. FINDINGS: BONES: No acute fracture is present. No bony destructive lesion is seen. JOINTS: The knee is normally aligned. No joint effusion is seen. Myma-ej-wcovywra narrowing of the medial femoral tibial joint space. Patellofemoral joint and lateral femoral tibial joints are mainta ined. Minimal periarticular spurring. SOFT TISSUE: Normal. IMPRESSION: Uozu-pa-bziujoas degenerative changes of the medial femoral tibial joint. DATA REPOSITORY: RADIATION DOSE DELIVERED:
== END 2024-04-06 14:43 | disposition home or self-care (01) ==
LOC: DIORS 14:43
PROVIDERS: PCP Nurse Practitioner Family; Referring Provider Nurse Practitioner Family; Visit Provider Student in an Organized Health Care Education/Training Program
DX: M17.12 Unilateral primary osteoarthritis, left knee (principal)
CPT/HCPCS: 20610; 99213; J1010; 73564

== ENCOUNTER 2024-06-14 04:50 | Outpatient (CLI) | payer OTHER, SELFPAY ==
[2024-06-14 15:25] LABS: Hemoglobin A1C 5.9 % (<5.7)
[2024-06-14 15:44] LABS: Anion Gap 9.1 mmol/L (3-11); BUN 11 mg/dL (7-18); CO2 27.9 mmol/L (21.0-32.0); CREATININE 0.9 mg/dL (0.55-1.02); Calcium 9.6 mg/dL (8.5-10.1); Calculated LDL 75 mg/dL (<100); Chloride 104 mmol/L (98-107); Cholesterol 186 mg/dL (<200); Estimated GFR 68.77 (mL/min/1.73m2); Glucose 111 mg/dL (74-106); HDL Cholesterol 86 mg/dL (40-60); Potassium 4.6 mmol/L (3.5-5.1); Sodium 141 mmol/L (136-145); Triglyceride 126 mg/dL (<150)
== END 2024-06-14 04:51 | disposition home or self-care (01) ==
LOC: LBO 04:51
PROVIDERS: PCP Nurse Practitioner Family; Visit Provider Nurse Practitioner Family
DX: E78.5 Hyperlipidemia, unspecified (principal); F34.1 Dysthymic disorder; F41.9 Anxiety disorder, unspecified; Z72.89 Other problems related to lifestyle; I48.91 Unspecified atrial fibrillation; R73.09 Other abnormal glucose
CPT/HCPCS: 36415; 80048; 80061; 83036

== ENCOUNTER 2024-06-15 01:05 | Outpatient (CLI) | payer OTHER, SELFPAY ==
--- NOTE | 2024-06-15 14:09 | DI.MAMMO_ITS ---
Exam(s) MAMMO SCREENING EXAM: MAMMO SCREENING CLINICAL HISTORY: screening, Z12.39. TECHNIQUE: Bilateral full field digital CC and MLO mammographic images were obtained with 3D tomosyn thesis and utilizing computer aided detection (CAD). COMPARISON: Prior mammograms were reviewed. Prior ultrasound 03/27/2022 reviewed. FINDINGS: Multiple asymmetric density seen bilaterally. One of these has increased in size, this located 5 cm in from the nipple on the CC view, slightly med ial of center and measures 8 by 7 mm. Spot compression view and ultrasound recommended. Otherwise, there are now numerous bilateral nodules located inferiorly in both breasts which contain multiple calcifications therein. I suspect that these are skin moles which now either contain calcif ication or possibly related to the positive from skin cream. There is no significant architectural distortion nor skin thickening-retraction. IMPRESSION: 1. Multiple bilateral nodules most of which are stable with exception of 1 which has increased in siz e in the right breast and should undergo spot compression view and ultrasound. 2. In addition, repeat views should be performed after the inferior aspect of the breast have been wa shed of any creams which may explain the multiple calcifications within what are probably skin moles. BI-RADS Category 0 - Incomplete: Need additional imaging evaluation Breast Density - Category B - Scattered areas of fibroglandular density Breast density Category C or D implies that the patient has dense breast tissue. Dense breast tissue can make it harder to find cancer on a mammogram. Dense breast tissue is also associated with an incr eased risk of breast cancer. This information about the result of the mammogram report was provided to the patient to raise their awareness. Use this report when you speak with the patient about their risks for breast cancer, which includes their family history. At that time, you may recommend additional screening tests (Ultrasoun d or MRI) as these tests may add significant information. A negative radiographic report should not delay biopsy if a dominant or clinically suspicious mass is present. Up to ten percent of cancers are not identified on mammography. A negative report may reinforce clinical impression. Adenosis and dense breasts may obscure an underlying neoplasm. False positive reports average 6 to 10%. Patient will receive a letter notifying them of these results.
== END 2024-06-15 01:25 ==
LOC: DI 01:05
PROVIDERS: PCP Nurse Practitioner Family; Visit Provider Nurse Practitioner Family
DX: Z12.31 Encounter for screening mammogram for malignant neoplasm of breast (principal); R92.8 Other abnormal and inconclusive findings on diagnostic imaging of breast
CPT/HCPCS: 77063; 77067

== ENCOUNTER 2024-07-05 17:48 | Emergency (ER) | payer OTHER, SELFPAY ==
[2024-07-05 17:49] VITALS: BP 123/79; PULSE 90; RESP 15; TEMP 37.1; O2SAT 98
[2024-07-05 17:52] VITALS: BP 123/79; PULSE 90; RESP 15; TEMP 37.1; O2SAT 98
--- NOTE | 2024-07-05 17:55 | W.ED.GENAD ---
Discharge Plan Disposition Patient Disposition: Home Discharge Details Clinical Impression: Acute UTI Primary Care Provider: Lovely Sweet ED Provider: Yinka Benz Sumner Meds and New Rx's Prescriptions: New ciprofloxacin HCl 500 mg tablet 500 mg PO BID Qty: 14 0RF Continued acetaminophen [Tylenol Arthritis Pain] 650 mg tablet extended release 650 mg PO Q12H PRN fluoxetine 40 mg capsule 40 mg PO DAILY Qty: 90 4RF hydrocortisone [Anusol-HC] 2.5 % cream with perineal applicator 1 applic [place] BID-QID PRN (Reason: hemorrhoids) Qty: 30 0RF Eliquis 5 mg tablet See Rx Instructions .ROUTE .COMPLEX Qty: 60 11RF Dose Instruction: TAKE 1 TABLET BY MOUTH TWICE DAILY FOR A FIB Rx Instructions: TAKE 1 TABLET BY MOUTH TWICE DAILY FOR A FIB diltiazem HCl 240 mg capsule,extended release 24 hr 240 mg PO DAILY Qty: 90 4RF atorvastatin 20 mg tablet 20 mg PO QHS Qty: 90 1RF prednisone 5 mg tablet 5 mg PO DIRECTED Qty: 49 0RF Rx Instructions: 40 mg x 2 days, 30 mg x 2 days, 20 mg x 2 days, 15 mg x 2 days, 10 mg x 2 days, 5 mg x 2 days, 2.5 mg x 2 days, then stop. cyclobenzaprine 5 mg tablet 5 mg PO TID PRN (Reason: back pain) Qty: 30 0RF Rx Instructions: Take 1 tablet by mouth three times a day as needed for back pain Discharge Instructions Instructions: Urinary Tract Infection, Adult ED Additional Instructions: You are seen in the emergency department for your urinary symptoms. You are found to have a urinary tract infection for which you are receiving antibiotics which you should take as directed. Please return to the emergency department if you develop fevers began vomiting or have any other concerns. Otherwise please follow-up with your primary care provider. HPI General Date/Time Provider Initiated Documentation: 07/05/24 17:55. HPI Narrative: MDM This is an overall very well-appearing normothermic and not tachycardic 68-year-old female with dysuria frequency and presentation most consistent with acute UTI. No pain out of proportion to suggest necrotizing soft tissue infection. No new sexual partners nor abnormal vaginal discharge to suggest sexually transmitted infection. No significant abdominal pain nor fevers to suggest increased risk for appendicitis so do not feel the patient required a CT scan. No history of nephrolithiasis nor any new or different flank pain so my suspicion was low for ureterolithiasis. No reported rash to abdomen to suggest zoster. No history of falls to suggest increased risk for retroperitoneal hemorrhage. In the absence of significant abdominal pain I am not concerned for ruptured AAA. 7:30 PM Urinalysis showing large blood large leuk esterase concerning for UTI. Interview of the patient's recent course of treatment she received ciprofloxacin which improved her symptoms. She is also received cefpodoxime and this has not improved her symptoms. Urine culture from earlier this summer showing pansensitive E. coli. Given prior response to ciprofloxacin in the past we will dose initial dose of ciprofloxacin in the emergency department now at 500 mg and treat twice daily for 7 days. HPI This is a 68-year-old female with a history of atrial fibrillation on apixaban arrived emergency department via private vehicle in setting of dysuria and frequency associated with intermittent urinary retention and reminiscent of prior history of urinary tract infections. Patient reports her symptoms have been ongoing for the past 5 days. She denies any nausea vomiting fevers. No vaginal bleeding. She is sexually active with a single male partner. She denies history of sexually transmitted infection. No abnormal vaginal discharge. No history of nephrolithiasis nor ureteral lithiasis. No recent falls. Patient does have some left-sided sciatica but notes no new flank pain. Exam General: Well-appearing in no acute distress speaking in complete sentences. Head: Normocephalic, atraumatic. Eye: Extraocular eye movements intact. No conjunctival injection. No scleral icterus. Ear, nose, mouth, throat: Grossly normal inspection. Normal voice, handling secretions normally. Neck: Trachea midline. Cardiovascular: Well-perfused distal extremities. Respiratory: Nonlabored respiration. Gastrointestinal: Nondistended abdomen. Musculoskeletal: No edema. Moving all 4 extremities spontaneously. Skin: Normal for age and race, grossly normal temperature and turgor. No acute rash. Neurologic: Alert and appropriate, no apparent acute deficits. Psychiatric: Mood and manner are appropriate. Grooming and personal hygiene are appropriate. Related Data Home Medications ?Medication ?Instructions ?Recorded ?Confirmed acetaminophen 650 mg 650 mg PO Q12H PRN 06/14/19 07/05/24 tablet,extended release (Tylenol Arthritis Pain) fluoxetine 40 mg capsule 40 mg PO DAILY #90 caps 02/04/23 07/05/24 hydrocortisone 2.5 % topical cream 1 applic VA BID-QID PRN 01/13/24 07/05/24 with perineal applicator hemorrhoids #30 grams (Anusol-HC) apixaban 5 mg tablet (Eliquis) See Rx Instructions .Route 03/27/24 07/05/24 .COMPLEX #60 tabs diltiazem HCl 240 mg capsule,24 240 mg PO DAILY #90 caps 03/27/24 07/05/24 hr,extended release atorvastatin 20 mg tablet 20 mg PO QHS #90 tabs 05/11/24 07/05/24 prednisone 5 mg tablet 5 mg PO DIRECTED #49 tabs 05/25/24 07/05/24 cyclobenzaprine 5 mg tablet 5 mg PO TID PRN back pain #30 tabs 06/15/24 07/05/24 ciprofloxacin HCl 500 mg tablet 500 mg PO BID #14 tabs 07/05/24 Previous Rx's ?Medication ?Instructions ?Recorded fluoxetine 40 mg capsule 40 mg PO DAILY #90 caps 02/04/23 hydrocortisone 2.5 % topical cream 1 applic VA BID-QID PRN 01/13/24 with perineal applicator hemorrhoids #30 grams (Anusol-HC) apixaban 5 mg tablet (Eliquis) See Rx Instructions .Route 03/27/24 .COMPLEX #60 tabs diltiazem HCl 240 mg capsule,24 240 mg PO DAILY #90 caps 03/27/24 hr,extended release atorvastatin 20 mg tablet 20 mg PO QHS #90 tabs 05/11/24 prednisone 5 mg tablet 5 mg PO DIRECTED #49 tabs 05/25/24 cyclobenzaprine 5 mg tablet 5 mg PO TID PRN back pain #30 tabs 06/15/24 ciprofloxacin HCl 500 mg tablet 500 mg PO BID #14 tabs 07/05/24 Allergies Allergy/AdvReac Type Severity Reaction Status Date / Time No Known Allergies Allergy Verified 07/05/24 17:53 General Stated Complaint: Urinary RACHELLE: 4 Course Vital Signs Vital signs: Vital Signs Temperature 37.1 C 07/05/24 17:49 Pulse 90 07/05/24 17:49 Respiratory Rate 15 07/05/24 17:49 Blood Pressure 123/79 07/05/24 17:49 Pulse Oximetry 98 07/05/24 17:49 Temperature 37.1 C 07/05/24 17:52 Pulse 90 07/05/24 17:52 Respiratory Rate 15 07/05/24 17:52 Respiratory Effort Normal 07/05/24 17:52 Blood Pressure 123/79 07/05/24 17:52 Blood Pressure Position Sitting 07/05/24 17:52 Pulse Oximetry 98 07/05/24 17:52 Oxygen Delivery Method Room Air 07/05/24 17:52 Oxygen Flow Rate 0 07/05/24 17:49 Medical Decision Making Quality:SDOH Health Related Social Needs: No Data to Display PFSH All Active Problems (Updated 07/05/24 @ 19:36 by Yinka Benz MD) Acute UTI (Acute) Arthritis of left knee (Acute) Hyperlipidemia (Acute) Basal cell carcinoma (BCC) of skin of nose (Acute) Skin lesion of face (Acute) Alcohol intake above recommended sensible limits (Acute) Insomnia (Acute) Atrial fibrillation by electrocardiogram (Acute) First dx on EKG 01/24/19 Anxiety (Chronic 01/18/14) Depression (Chronic 01/18/14) Medical History Seborrheic keratoses Under left clavicle and on right upper arm Tear of medial meniscus of left knee, current Depression Anxiety Urinary frequency (10/12/12) Surgical History History of appendectomy Family History Mother , 89 No problems noted. Father , 74 Throat cancer Heart disease Brother No problems noted. Son No problems noted. Daughter No problems noted. Daughter No problems noted. Maternal Grandfather , age 87 No problems noted. Paternal Grandfather , age 80 No problems noted. Maternal Grandmother , age 84 No problems noted. Paternal Grandmother , age 75 No problems noted. Social History Smoking/Tobacco Use Status: Never Second Hand Exposure: No Smoking risk assessment performed?: Yes Alcohol Intake: current Alcohol Intake frequency: a few times a week Alcohol type: beer Drug use: Never Substance use type: does not use Adopted: No Caregiver/Support person: No Household members: spouse Housing: house Number of Children: 3 number of grandchildren: 6 Communication Needs: None Education Level: high school Do you need help understanding health information?: Never current occupation: Retired Pets and animals: Yes Pets and animals: dog(s) Sexually active: Yes Do you think of yourself as: straight/heterosexual Current gender identity: female What is your relationship status?: How often do you talk on the phone with friends or family?: three or more times per week How often do you get together with friends or relatives?: once per week How often do you attend yazdanism or congregational services?: decline to answer Do you belong to any clubs or organized social groups?: no Panel score (0-1 are the most socially isolated patients): 2 What type of physical activity do you participate in: walking Duration: 15-30 minutes/day Jen/Islam: None Special jen needs: No Seatbelt use: always Helmet use: No Drive intox or ride w/intox service car driver: No Firearms in home: No Do you feel safe at home: Yes Do you feel safe in your relationship?: Yes Victim of physical abuse: No Victim of emotional abuse: No Victim of sexual abuse: No Would you like helpful sources: No PAWSS Have you Been Recently Intoxicated or Drunk Within the Last 30 days?: No Have you Ever Experienced Previous Episodes of Alcohol Withdrawal?: No Have you ever Experienced Withdrawal Seizures?: No Have you ever Experienced Delirium Tremens(DT)s?: No Have you ever undergone Alcohol Rehabilitation Treatment (i.e, inpt ot outpatient treatment programs)?: No Have you ever Experienced Blackouts?: No Have you ever Combined Alcohol with other Downers within the last 90 days?: No Have you ever Combined Alcohol with any other Substance of Abuse during the last 90 days?: No Positive Blood Alcohol level on Presentation? [PCS.BAL]: No Evidence of Increased Autonomic Activity (i.e. HR>120, tremor, sweating, agitation, nausea)?: No Result: 0
[2024-07-05 19:12] LABS: Bilirubin Negative (Negative); Blood Large (Negative); Clarity Sl Cloudy (Clear); Glucose Negative (Negative); Ketones Trace mg/dL (Negative); Leukocyte Esterase Large (Negative); Nitrite Negative (Negative); Specific Gravity 1.025 (1.005-1.025); Urobilinogen 0.2 mg/dL (Up to 0.2); pH 5.5 (5-8)
[2024-07-05 19:51] VITALS: BP 148/74; PULSE 80; RESP 16; TEMP 36.9; O2SAT 98
[2024-07-05] MEDS: Ciprofloxacin 500 MG TAB PO (19:51)
[2024-07-05] MEDS: Ciprofloxacin 250 MG TAB 500 MG PO (19:57)
== END 2024-07-05 19:51 | disposition home or self-care (01) ==
PROVIDERS: Emergency Provider Emergency Medicine; PCP Nurse Practitioner Family
DX: N39.0 Urinary tract infection, site not specified (principal); I48.91 Unspecified atrial fibrillation; E78.5 Hyperlipidemia, unspecified; Z79.01 Long term (current) use of anticoagulants
CPT/HCPCS: 99283; 81003; 81015

== ENCOUNTER 2024-07-06 01:43 | Outpatient (CLI) | payer OTHER, SELFPAY ==
--- NOTE | 2024-07-06 | DI.US_ITS ---
Exam(s) US BREAST RT LIMITED MG MAMMO SCREEN CALL BACK BI EXAM: MG MAMMO SCREEN CALL BACK BI CLINICAL HISTORY: R92.8 Abnormal mammo,bilat asymmetric densities,nodules vs skin moles. TECHNIQUE: Repeat CC MLO views were performed. Spot compression digital Mammography views of the ri ght breast breasts with Tomosynthesis followed by right breast ultrasound. COMPARISON: MG MG MAMMO SCREENING from 03/20/2022 US US BREAST LT COMPLETE from 03/27/2022 MG MG MAMMO SCREEN CALL BACK UNI from 03/27/2022 MG MG MAMMO SCREENING from 06/15/2024 US US BREAST RT LIMITED from 07/06/2024 FINDINGS: Mammography/Tomosynthesis: Masses/Architectural Distortion: Multiple bilateral nodules are again noted. Spot compression views shows slight interval increase of previously known and noted nodule in the medial right breast. Microcalcifictions: No suspicious pleomorphic-type are seen. Previously noted radiopacities noted bilaterally on the 06/15/2024 exam are no longer present, consistent with dense material within skin moles which has been washed off. Skin Thickening/Nipple Retraction: None. Right breast US: Echotexture: Normal appearance of the glandular tissue. Shadowing: No suspicious foci. Cyst: Mild increase in size of previously noted cyst in the 1 o'clock position, 1 cm from the nipple measuring 5 x 7 x 7 millimeters. Other smaller cysts are noted in the anterior breast tissue. Solid lesions: None seen. Ductal dilation: None. IMPRESSION: 1. Right breast: No evidence of malignancy is noted. 2. Left breast: No evidence of malignancy is noted. 3. Unless there is more urgent need, follow-up screening mammography is recommended, as per [place] [employer] guidelines. 4. The findings were discussed with the patient on the date of the examination. BI-RADS Category 2 - Benign Findings Breast Density - Category B - Scattered areas of fibroglandular density A mammogram that demonstrates density of C or D indicates the patient's breast tissue is dense. Dense breast tissue is very common and is not abnormal, but dense breast tissue can make it harder to find cancer on a mammogram. Also, dense breast tissue may increase their breast cancer risk. This informa tion about the result of the mammogram report was provided to the patient to raise their awareness. U se this report when you speak with the patient about their risks for breast cancer, which includes th eir family history. At that time, you may recommend for more screening tests (Ultrasound or MRI) as t hey might be useful based on their risk. A negative radiographic report should not delay biopsy if a dominant or clinically suspicious mass is present. Up to ten percent of cancers are not identified on mammography. A negative report may reinforce clinical impression. Adenosis and dense breasts may obscure an underlying neoplasm. False positive reports average 6 to 10%. Patient will receive a letter notifying them of these results.
== END 2024-07-06 02:03 ==
LOC: DI 01:43
PROVIDERS: PCP Nurse Practitioner Family; Visit Provider Nurse Practitioner Family
DX: Z12.31 Encounter for screening mammogram for malignant neoplasm of breast (principal); R92.8 Other abnormal and inconclusive findings on diagnostic imaging of breast
CPT/HCPCS: 76642; 77063; 77067

== ENCOUNTER 2025-01-15 14:45 | Outpatient (CLI) | payer MEDICARE, SELFPAY ==
--- NOTE | 2025-01-15 14:10 | DI.RAD_ITS ---
Exam(s) XR KNEE LT 2V AP,LAT XR STANDING ALIGNMENT EXAM: XR STANDING ALIGNMENT and XR knee LT 2 V CLINICAL HISTORY: pre TKA. TECHNIQUE: 2D digital imaging was performed. Six images were obtained. COMPARISON: CR XR knee LT 3V AP,lat,richard from 02/27/2019 CR XR KNEE LT 4V AP,LAT,RICHARD,PAT from 04/06/2024 FINDINGS: BONES: The hips are well maintained. The right knee is well maintained. In the left knee, there is mild narrowing of the medial femoral tibial joint. Small spurs seen at the posterior aspect of the p atella. No joint effusion is seen. The ankles are well maintained.There is no significant leg lengt h discrepancy. SOFT TISSUE: Normal. IMPRESSION: Mild degenerative changes seen in the left knee. DATA REPOSITORY: RADIATION DOSE DELIVERED:
== END 2025-01-15 14:46 | disposition home or self-care (01) ==
LOC: DIORS 14:45
PROVIDERS: PCP Nurse Practitioner Family; Referring Provider Nurse Practitioner Family; Visit Provider Student in an Organized Health Care Education/Training Program
DX: M17.12 Unilateral primary osteoarthritis, left knee (principal)
CPT/HCPCS: 99214; 73560; 77073

== ENCOUNTER 2025-03-13 16:05 | Outpatient (CLI) | payer MEDICARE, SELFPAY ==
--- NOTE | 2025-03-13 16:00 | RT.EKG_ITS ---
APPROVED REPORT Exam: Resting ECG Reason for Exam: pre-op Patient Location: O HR:98 bpm ECG Measurements Heart Rate 98 AXIS ID [id number] P [id number] QRSd 95 QRS 35 QT 341 T -5 QTc 436 Conclusion Atrial fibrillation...V-rate 75-143, irreg A-activity
== END 2025-03-13 16:06 | disposition home or self-care (01) ==
LOC: DI.CM 16:06
PROVIDERS: PCP Nurse Practitioner Family; Visit Provider Nurse Practitioner Family
DX: Z01.818 Encounter for other preprocedural examination (principal)
CPT/HCPCS: 93010

== ENCOUNTER 2025-03-26 17:11 | Outpatient (REF) | payer MEDICARE, SELFPAY ==
[2025-03-26 19:26] LABS: HCT 43.0 % (36.0-46.0); HGB 14.5 g/dL (11.2-15.7); MCH 32.9 pg (27.0-33.0); MCHC 33.7 % (32.0-36.0); MCV 98 fL (80-95); MPV 10.3 fL (8.0-11.0); Platelet Count 245 10^3/uL (130-400); RBC 4.41 10^6/uL (3.93-5.22); RDW 13.2 % (11.7-14.6); RDW-SD 47.4 fL; WBC 4.81 10^3/uL (4.4-10.8)
[2025-03-26 20:05] LABS: Anion Gap 10.2 mmol/L (3-11); BUN 10 mg/dL (7-18); CO2 27.8 mmol/L (21.0-32.0); Calcium 9.5 mg/dL (8.5-10.1); Chloride 102 mmol/L (98-107); Estimated GFR 95.90 (mL/min/1.73m2); Glucose 99 mg/dL (74-106); Potassium 3.9 mmol/L (3.5-5.1); Sodium 140 mmol/L (136-145)
== END 2025-03-26 17:12 | disposition home or self-care (01) ==
LOC: LBN 17:11
PROVIDERS: PCP Nurse Practitioner Family; Visit Provider Student in an Organized Health Care Education/Training Program
DX: M17.12 Unilateral primary osteoarthritis, left knee (principal); Z01.818 Encounter for other preprocedural examination
CPT/HCPCS: 80048; 85027

== ENCOUNTER → 2025-04-04 12:41 | Outpatient (BNVA) | payer MEDICARE, SELFPAY | PROVIDERS: PCP Nurse Practitioner Family; Referring Provider Nurse Practitioner Family; Visit Provider Registered Nurse | DX: I48.91 Unspecified atrial fibrillation (principal); Z79.01 Long term (current) use of anticoagulants | CPT/HCPCS: 99213 ==

== ENCOUNTER 2025-04-05 06:55 | Day surgery (SDC) | payer MEDICARE, SELFPAY ==
[2025-04-05] VITALS (29 sets, daily range): BP systolic 91–136; BP diastolic 64–94; PULSE 72–94; RESP 2–20; TEMP 35.8–36.6; O2SAT 91–99; BMI 31.8
--- NOTE | 2025-04-05 06:35 | W.ANESPRE ---
General Info Date of Service Date Performed: 04/05/25 Height: 5 ft 5.25 in Weight: 87.543 kg Body Mass Index (BMI): 31.8 Surgical Procedure: Operation Date: 04/05/25 09:40 Proposed Procedure Side Surgeon p Knee Total Arthroplasty Left Fredi Monique MD Meds Allergies and Home Medications Allergies Allergy/AdvReac Type Severity Reaction Status Date / Time No Known Allergies Allergy Verified 04/05/25 07:27 Home Medication ?Medication ?Instructions ?Recorded hydrocortisone 2.5 % topical cream 1 applic [place] BID-QID PRN 01/13/24 with perineal applicator hemorrhoids #30 grams (Anusol-HC) cyclobenzaprine 5 mg tablet 5 mg PO TID PRN back pain #30 tabs 06/15/24 fluoxetine 40 mg capsule 40 mg PO DAILY #90 caps 08/11/24 diltiazem HCl 240 mg capsule,24 240 mg PO DAILY #90 caps 09/27/24 hr,extended release atorvastatin 20 mg tablet 20 mg PO QHS #90 tabs 12/07/24 apixaban 5 mg tablet (Eliquis) See Rx Instructions .Route 02/28/25 .COMPLEX #60 tabs acetaminophen 500 mg tablet 1,000 mg (2 x 500 mg) PO Q8H PRN 04/05/25 pain #90 tabs celecoxib 200 mg capsule 200 mg PO BID PRN pain #60 caps 04/05/25 dexamethasone 4 mg tablet 4 mg PO DAILY #2 tabs 04/05/25 oxycodone 5 mg tablet 5 mg PO Q4H PRN #18 tabs 04/05/25 pantoprazole 40 mg tablet,delayed 40 mg PO DAILY #30 tabs 04/05/25 release Current Visit Medications: Current Medications Generic Name Dose Route Start Last Admin Trade Name Freq PRN Reason Stop Dose Admin Acetaminophen 1,000 mg 04/05/25 06:00 Acetaminophen 500 Mg Tab PO 04/05/25 23:59 PREOP FEROZ Celecoxib 400 mg 04/05/25 06:00 Celecoxib 200 Mg Cap PO 04/05/25 23:59 PREOP FEROZ Gabapentin 300 mg 04/05/25 06:00 Gabapentin 300 Mg Cap PO 04/05/25 23:59 PREOP FEROZ Ringer's Solution 1,000 mls @ 80 mls/hr 04/05/25 06:00 IV 04/05/25 23:59 INFUSION FEROZ Cefazolin Sodium/Dextrose 2 gm in 50 mls @ 100 mls/hr 04/05/25 06:00 Ancef Duplex IVPB 04/05/25 23:59 PREOP FEROZ Tranexamic Acid/Sodium Chloride 1,000 mg in 100 mls @ 600 mls/hr 04/05/25 06:00 IVPB 04/05/25 23:59 PREOP FEROZ IV Miscellaneous Supplies 1 each 04/05/25 06:00 Iv Access IV 04/05/25 23:59 DIRECTED FEROZ Sodium Chloride 0 ml 04/05/25 06:00 Normal Saline Flush 10 Ml Syr IV 04/05/25 23:59 PRN PRN Sodium Chloride 0 ml 04/05/25 06:00 Normal Saline 10 Ml Vial IJ 04/05/25 23:59 DIRECTED PRN Sterile Water 0 ml 04/05/25 06:00 Water,Injection,Sterile 10 Ml Vial IJ 04/05/25 23:59 DIRECTED PRN PFSH Active Problems Active Problems: Problem Status Onset Code Prediabetes Acute R73.03 Arthritis of left knee Chronic M17.12 Hyperlipidemia Acute E78.5 Alcohol intake above recommended sensible limits Acute Z72.89 Insomnia Acute G47.00 Atrial fibrillation by electrocardiogram Acute I48.91 Anxiety Chronic 01/18/14 F41.9 Depression Chronic 01/18/14 F32.9 Medical History Medical History Basal cell carcinoma (BCC) of skin of nose Seborrheic keratoses Under left clavicle and on right upper arm Tear of medial meniscus of left knee, current Depression Anxiety Urinary frequency (10/12/12) Surgical History Surgical History History of appendectomy Tobacco Smoking/Tobacco Use Status: Never Passive smoking exposure: Yes Second hand exposure: No Alcohol Alcohol Intake: current Alcohol intake frequency: a few times a week Alcohol type: beer Substance Use Substance use: Never Substance use type: does not use Vital Signs and Lab Results Vital Signs Most Recent Vital Signs in EMR: Temp Pulse Resp BP Pulse Ox 36.4 C L 92 H 18 136/86 99 04/05/25 07:29 04/05/25 07:29 04/05/25 07:29 04/05/25 07:29 04/05/25 07:29 Lab Results Complete Blood Count: WBC, (4.4-10.8) 4.81 10^3/uL 03/26/25, 14:30 RBC, (3.93-5.22) 4.41 10^6/uL 03/26/25, 14:30 Hgb, (11.2-15.7) 14.5 g/dL 03/26/25, 14:30 Hct, (36.0-46.0) 43.0 % 03/26/25, 14:30 Plt Count, (130-400) 245 10^3/uL 03/26/25, 14:30 Complete Metabolic Panel: Sodium, (136-145) 140 mmol/L 03/26/25, 14:30 Potassium, (3.5-5.1) 3.9 mmol/L 03/26/25, 14:30 Chloride, (98-107) 102 mmol/L 03/26/25, 14:30 Carbon Dioxide, (21.0-32.0) 27.8 mmol/L 03/26/25, 14:30 BUN, (7-18) 10 mg/dL 03/26/25, 14:30 Creatinine, (0.55-1.02) 0.6 mg/dL 03/26/25, 14:30 Est GFR (CKD-EPI 2020), (mL/min/1.73m2) 95.90 03/26/25, 14:30 Calcium, (8.5-10.1) 9.5 mg/dL 03/26/25, 14:30 Glucose, (74-106) 99 mg/dL 03/26/25, 14:30 Anesthesia Assessment and Plan Anesthesia History Personal History: No History of Anesthesia Complications Family History: No Family History of Anesthesia Complications Exercise Tolerance Exercise Tolerance: Metabolic Equivalents>4 Cardiac & Pulmonary Exam Cardiac Exam: Normal S1/S2 Heart Sounds Pulmonary Exam: Clear Bilateral Breath Sounds Implantable Cardiac Device Does patient have a Pacemaker or an ICD?: No Airway Exam Known Difficult Airway: No Mallampati Class: 4 Mouth Opening: Narrow (< 3cm) Thyromental Distance: Less than 3 cm Neck Range of Motion: Limited ROM Neck Circumference: Normal Teeth Condition: Normal Dentition and Removable Dentures/Plates Upper ASA Classification ASA Score: ASA 2 Emergency Case?: No NPO Status NPO Status: NPO Clears >2 hours, Solids >8 hours Anesthesia Plan Resuscitation Status: Full Code Anesthesia Technique: General Anesthesia Airway Planned: Endotracheal Tube Pain Management: Surgeon and patient request nerve block Monitors Used: Standard Monitors Preoperative Comments:: 69 yo female for TKA. Sig PMHx: afib (eliquis, dilt), PreDM, anxiety (lorazepam), depression (fluoxetine). Never smoker, occ EtOH. Denies reflux/GERD. ECHO: LVEF 60%, moderate RA/RV dilation, moderate TR, RVSP 37 mmhg. ECG: afib. Does not want a spinal. Discussed risks and benefits of spinal vs general, she would still prefer GA.
--- NOTE | 2025-04-05 07:18 | W.PM.DSUDISC ---
Date of service: 04/05/25 Discharge Plan Disposition Patient Disposition: Home Condition: Stable Discharge Details Attending Provider: Fredi Monique Primary Care Provider: Lovely [facility] Meds and New Rx's Prescriptions: New acetaminophen 500 mg tablet 1,000 mg PO Q8H PRN (Reason: pain) Qty: 90 3RF celecoxib 200 mg capsule 200 mg PO BID PRN (Reason: pain) Qty: 60 1RF pantoprazole 40 mg tablet,delayed release (DR/EC) 40 mg PO DAILY Qty: 30 0RF dexamethasone 4 mg tablet 4 mg PO DAILY Qty: 2 0RF Rx Instructions: Starting Post-Operative Day #1 (Day after surgery) oxycodone 5 mg tablet 5 mg PO Q4H PRNQty: 18 0RF Continued fluoxetine 40 mg capsule 40 mg PO DAILY Qty: 90 4RF hydrocortisone [Anusol-HC] 2.5 % cream with perineal applicator 1 applic KS BID-QID PRN (Reason: hemorrhoids) Qty: 30 0RF cyclobenzaprine 5 mg tablet 5 mg PO TID PRN (Reason: back pain) Qty: 30 0RF Rx Instructions: Take 1 tablet by mouth three times a day as needed for back pain diltiazem HCl 240 mg capsule,extended release 24hr 240 mg PO DAILY Qty: 90 4RF atorvastatin 20 mg tablet 20 mg PO QHS Qty: 90 3RF Eliquis 5 mg tablet See Rx Instructions .ROUTE .COMPLEX Qty: 60 11RF Dose Instruction: TAKE 1 TABLET BY MOUTH TWICE DAILY FOR A FIB Rx Instructions: TAKE 1 TABLET BY MOUTH TWICE DAILY FOR A FIB Discontinued acetaminophen [Tylenol Arthritis Pain] 650 mg tablet extended release 650 mg PO Q12H PRN Discharge Instructions Additional Instructions: Total Knee Discharge Instructions Activity: The most important activity is to walk and to work on gentle motion (both flexion and extension). You should try to take short walks a few times a day. It is important that when resting you work on keeping the knee straight. Avoid putting a pillow behind the knee as this will encourage flexion. Work on range of motion exercises as provided by Physical Therapy. - Start outpatient physical therapy within 2 weeks. - You should wear the ILEANA hose on both legs for 2 weeks. You may remove these at night. You may also use any compression sock in place of the ILEANA hose. - Utilize [employer] to review exercises, see videos on exercises and obtain basic information pertaining to your surgery and your recovery. Dressing: Remove the Dayne wrap by 2 days after your surgery and put on the ILEANA stocking given to you from the hospital. Keep the surgical dressing (underneath the DAYNE wrap) in place for at least one week. After the first week it may be removed and replaced with light gauze and tape or nothing. The wound and dressing may get wet after 3 days but avoid soaking the dressing or otherwise it will need to be changed. Many people prefer covering the dressing with cling wrap (saran wrap) to minimize it from getting soaked. If it gets wet, just pat dry. If it starts to peel off then it will need to be changed. Medications: - You should take Tylenol and anti-inflammatory Celebrex as your primary pain control medications. If the Celebrex is too expensive or not covered, please call the office for another alternative (Advil/Ibuprofen or Naproxen/Aleve) - You have been prescribed a stronger pain medication Oxycodone for breakthrough pain, take as needed as prescribed. - You have also been prescribed a stomach acid reduction agent Pantoprozole to help reduce stomach acid and reflux. - You have been prescribed Gabapentin to take at night for restlessness and nerve pain. - You will be taking your regular dose of Apixaban, to start tonight, for DVT prevention unless instructed otherwise. - You have also been prescribed Decadron to take to control post-operative nausea and pain. You will start this tomorrow. - If you have constipation you should take Colace or Miralax (both xgkd-[id number]-boglods). It takes most people 3-4 days to have a bowel movement. Follow-up: 2 weeks If you have any acute concerns or questions, please do not hesitate to contact the office at [phone]. You may contact Dr. Monique with any questions after hours through the hospital at [phone] or on his cell phone at [phone]. Referrals: Fredi Monique MD [ [facility] STAFF PHYSICIAN, Orthopaedic Surgical] Equipment/Supplies: Walker Activity:: Activity as Tolerated Remove Dressings/Wound Care:: Do Not Remove Shower/Bathe:: Cover Diet:: As Tolerated Discharge Orders Discharge Orders: Discharge Order (Routine); Ordered 04/05/25 Ordered By: Fredi Monique DS: Diagnosis Discharge Diagnosis (1) Arthritis of left knee: Status: Chronic
[2025-04-05] MEDS: Celecoxib 200 MG CAP 400 MG PO (07:47)
[2025-04-05] MEDS: Gabapentin 300 MG CAP PO (07:48)
[2025-04-05] MEDS: Acetaminophen 500 MG TAB 1000 MG PO (07:48)
[2025-04-05] MEDS: Lactated Ringers 1,000 ML 80 ML IV (08:35)
--- NOTE | 2025-04-05 08:42 | W.ANESNERVE ---
Nerve Block Single Injection Procedure Date and Time Date Performed: 04/05/25 Procedure Start: 08:27 Location Where Procedure Performed Procedure Location: Day Surgery Unit Reason Performed: Postoperative Analgesia Requesting Provider: Fredi Monique Timeout Performed Timeout Performed: Yes Monitoring Used ECG, Blood Pressure and SpO2 Sterility Sterility: Hand Hygiene, Surgical Cap, Surgical Mask, Sterile Gloves and Chlorhexidine Sedation Given During Procedure Sedation Given (Indicate Dose Given): Versed IV Dose:: 2 mg Patient Mental Status Patient Mental Status: Sedate with meaningful communication Nerve Block 1st Nerve Block: Laterality: Left Block Type: Adductor Canal Ultrasound Image Saved?: Yes Needle / Catheter Used: 100mm SonoPlex II Local Anesthetic Bolus (Indicate Dose Given): Bupivacaine 0.25% Dose:: 8 mL Additives (Indicate Dose Given): None Ultrasound: Sterile probe cover and gel used Nerve Stimulator: Supplement to Ultrasound use and No twitch or parasthesia noted < 0.5 mA (<0.8) Paresthesia: None Procedure Tolerated: No Complications Procedure Outcome: Successful Performed By: Kev Alejo 2nd Nerve Block: Laterality: Left Block Type: Other (anterior femoral cutaneous ) Ultrasound Image Saved?: Yes Needle / Catheter Used: 100mm SonoPlex II Local Anesthetic Bolus (Indicate Dose Given): Bupivacaine 0.25% Dose:: 5 mL Additives (Indicate Dose Given): None Ultrasound: Sterile probe cover and gel used Nerve Stimulator: Supplement to Ultrasound use and No twitch or parasthesia noted < 0.5 mA (<0.8) Paresthesia: None Procedure Tolerated: No Complications Procedure Outcome: Successful Performed By: Kev Alejo
[2025-04-05] MEDS: ceFAZolin 2 GM/50 ML BAG IVPB (09:25)
[2025-04-05] MEDS: TRANEXAMIC ACID/SOD. CHL. 1,000 MG/100 ML BAG 600 MG IVPB (09:28)
--- NOTE | 2025-04-05 10:34 | ROE_ITS ---
Operative Note Operative Note PRE-OP DIAGNOSIS: Left Knee Osteoarthritis POST-OP DIAGNOSIS: same PROCEDURE: Left Total Knee Replacement SURGEON: Fredi Monique E [employer] MARKETING ANALYST: Corry Hernandez ANESTHESIA TYPE: General LMA/ETT Refer to Anesthesia Record ESTIMATED BLOOD LOSS: 100 PATHOLOGY: none sent TOURNIQUET TIME: 0 COMPLICATIONS: None Patient was transported to: PACU Patient's condition: stable Implants: 1. Depuy Attune Cementless Cruciate Retaining Femoral Component, Size 5 2. Depuy Attune Cementless Fixed Bearing Tibial Component, Size 5 3. Depuy Attune 5x7mm CR/FB Poly Indications: I have seen Alyce in clinic for symptoms of knee arthritis, confirmed with radiographic findings. She has exhausted nonoperative methods and was having significant limitations in daily function and desired better function and less pain. I discussed the technical details of a knee replacement. I explained the risks of the procedure to include, but not limited to, bleeding, infection, pain, stiffness, fracture, damage to nerves and vessels, damage to muscles and tendons, loosening, need for repeat procedure, blood clot and cardiopulmonary demise. Despite these risks, Alyce elected to proceed. Findings: There was arthritis focused most about the medial compartment and the medial tibia. Procedure Description: Alyce was greeted in the preoperative holding area where the correct side was identified and marked. The consent was reviewed with the patient and signed. The history and physical was updated. All questions were answered. Preoperative medications were administered: Acetaminophen 1000mg, Celebrex 400mg, and Gabapentin 300mg. An adductor canal block was then administered by the anesthesia team in the DSU. SHe was taken back to the operating room. A general anesthestic was then administered. The patient was placed into the supine position on the operating room table. Posts were placed for positioning during the procedure. All bony prominences were well padded. Prophylactic antibiotics in the form of Cefazolin were administered. 1g of Tranxemic Acid was given intravenously within 30 minutes of incision. The left leg was then prepped with Chloraprep and draped in a standard fashion with impervious stockinette. A second prep with Chloraprep was performed prior to application of Iodine impregnated skin protection. A timeout to confirm correct identity, side and site, procedure, allergies, anesthesia, and medical concerns was performed. With the knee in some flexion, a midline incision was made overlying the knee. Full thickness skin flaps were raised once the extensor mechanism was encountered. These were raised medially and laterally. Any bleeding was controlled with electrocautery. Once the extensor mechanism was fully exposed, a medial parapatellar arthrotomy was performed in a flexed position. All bleeding from the arthrotomy and the geniculate arteries was coagulated. A medial subperiosteal peel was performed with electrocautery to the midcoronal plane. The fat pad was removed while keeping the patellar tendon protected. The anterior distal femur synovium was removed for later visualization. The ACL and PCL were resected and the anterior horn of the lateral meniscus was transected. The knee was then flexed with the patella everted. Using a step drill, and based on preoperative templating, the femoral canal was entered. This was done with a step drill without any difficulty. The intramedullary distal femoral cut guide was inserted, set to a 6 degree valgus cut and 8mm cut thickness. The distal femoral cut guide was then held in position and pinned. With the soft tissues protected, the distal cut was performed. This was passed over a few times to ensure a planar cut. I then turned attention to the tibia. The extramedullary guide was placed onto the leg. The distal aspect was slid medial to adjust for position of center of ankle and stay in line with shaft of the tibia. Approximately 3-5 degrees of posterior slope was kept in the proximal cutting guide. The center of the guide was aligned with the PCL. The stylus was used to assess cut thickness. The medial side, most involved side, was set for a 6mm cut. This was then held in position and pinned into place with 2 additional pins and a cross pin for stability. The medial and lateral collateral ligaments were protected and the cut was performed. With this completed, it was assessed and noted to be of appropriate dimensions. The guide was removed. A spacer block was inserted and the knee was brought into extension. The 6mm spacer block provided full extension, without hyperextension and with stability of both the medial and lateral collateral ligaments was assessed. The pins from the femur and the tibia were then removed. The distal femur was then sized. The anterior stylus was placed onto the lateral ridge of the anterior femur. This indicated a size 5 femur. The external rotation of the guide was adjusted to 3 degrees to match the epicondylar axis, perpendicular to Aniyah?s line. The 4-in-1 cutting guide was the placed. The posterior medial femur cut was evaluated and appeared of good thickness. The spacer block was inserted underneath the cutting guide and stability was confirmed in 90 degrees of flexion. An brooks wing was used to confirm appropriate position of the anterior cut to avoid notching. This cutting guide was ensured to be flush on the cut surface and then pinned into place with headed pins. While protecting the soft tissues, quad tendon, and collateral ligaments, the anterior and posterior cuts were performed with a saw. The central two pins were removed and the posterior and anterior chamfers were cut next. The notch-cutting guide was placed. This was pinned to lateralize the femoral component as much as possible while keeping it flush on the cut surface. This was then pinned into position. A reciprocating saw was used to make the notch cut. A rasp smoothed the cut surfaces. The medial and lateral menisci were removed. A trial femoral component was then inserted, impacted down to the cut surfaces, and the lug holes were drilled. A provisional trial tibial component was placed and the knee was brought through range of motion. The polyethylene was trialed until there was good flexion and extension with excellent stability to the medial and lateral collaterals. The patella was tracking without thumbs. A size 7mm polyethylene component provided the best range of motion and stability with less than 2mm gapping with medial and lateral stress and full extension without significant hyperextension. The tibial cut surface was fully exposed. The tibia was then sized as a 5. The tibia had been previously marked during trialing to correspond to the center of the tibial component to help with rotation. The trial was aligned to this berta, approximately rotated to the medial 1/3rd of the tibial tubercle. The trial was pinned into place. The tibia was prepared with a reamer and a keel punch and lug holes. The trial components were removed. The final components were opened on the back table. The periosteal and capsular tissues, especially posteriorly, around the knee were then systematically injected with a periarticular cocktail consisting of 246mg of Ropivacaine, 0.5mg of Epinephrine, 0.08mg of Clonidine, and 30mg of Ketorolac, diluted to 100cc. On the back table, with the implants opened. The cementless knee components were placed. Starting with the tibial component, the tibia was subluxed anteriorly and the lug holes of the component were lined up. The tibia was then impacted with an impactor and mallet until the tibial component was in contact with the tibia. The final polyethylene component was inserted. Then, the femoral component was inserted. The lug holes were aligned and the component was impacted into position. The knee was irrigated with Surgiphor Betadine solution. This was allowed to sit in the knee for 3 minutes and then it was irrigated out with saline. The patella was tracking with a no-thumbs technique. Then a complete synovectomy was performed around the patella. A lateral facetectomy was also performed with a rongeur. The capsule was then reapproximated with a No. 1 Vicryl at multiple locations. The capsule was finally closed with a No. 2 Stratafix, barbed suture. Deep tissues were then reapproximated with 0 Vicryl and 2-0 Vicryl. The skin was closed with a running 3-0 Monocryl in a subcuticular fashion. This was reinforced with skin glue. A Mepilex silver dressing was applied along with a fpyv-aw-jlcoc SWAPNIL wrap. A CryoCuff was applied. Alyce was transferred to the hospital bed without difficulty an suffering no apparent complication. She has a good prognosis. Physical therapy will start today and without restrictions, weight-bearing as tolerated. Her home dose of apixaban 5 mg twice daily will be used for DVT prophylaxis. Date of Procedure: 04/05/25
[2025-04-05] MEDS: HYDROmorphone 2 MG/ML SYR IVP ×2 (11:13→11:29)
--- NOTE | 2025-04-05 11:31 | W.ANESPOSTOP ---
Postoperative Evaluation Date, Time and Location Date Performed: 04/05/25 Time Performed: :31 Patient Location: PACU Vital Signs Most Recent Imported Vital Signs: Most Recent Vital Signs Temp Pulse Resp BP Pulse Ox 36.3 C L 79 12 116/64 94 04/05/25 11:18 04/05/25 11:26 04/05/25 11:26 04/05/25 11:26 04/05/25 11:26 Pain Score Most Recent Pain Score: Most Recent Pain Score Pain Level 0 04/05/25 11:08 Assessment Mental Status: Awake (Alert & Oriented to Patient Baseline) Airway and Respiratory Function: Patent airway with normal (patient baseline) respiratory exam Cardiovascular Function: Hemodynamically Stable Hydration Status: Adequately Hydrated Nausea & Vomiting: No Nausea or Vomiting Pain: Pain is Moderate or Severe Postoperative Pain Management: Pain being addressed with medication Peripheral Nerve Block: Regional nerve block not resolved at time of post operative discharge
--- NOTE | 2025-04-05 13:25 | PT.INIE ---
PT Notes Physical Therapy Day Surgery Initial Evaluation Date: 04/05/2025 Referring Doctor: Dr Monique PT Orders: PT CONSULT:s/p Ortho surgery Precautions: WBAT LLE Patient Profile/Admitting Diagnosis: Pt is a 69 yo female presenting s/p elective left TKA on 04/05/2025. Post op complicated by hypotension initially this resolved prior to discharge. PMHX: Arthritis of left knee (Chronic) Hyperlipidemia (Acute) Alcohol intake above recommended sensible limits (Acute) Insomnia (Acute) Atrial fibrillation by electrocardiogram (Acute) First dx on EKG 01/24/19Anxiety (Chronic 01/18/14) Depression (Chronic 01/18/14) Medical History (Updated 01/15/25 @ 13:48 by Kiersten Leonard) Basal cell carcinoma (BCC) of skin of nose Seborrheic keratoses Under left clavicle and on right upper armTear of medial meniscus of left knee, current Depression Anxiety Urinary frequency (10/12/12) Surgical History History of appendectomy Social History/Home Situation: Pt resides with her 4 JAY with left rail. Independent without AD for ambulation and ADLs drives Equipment Owned/DME: [employer], versa frame attached to toilet Subjective: Pt reports she can't believe it's over with. She states she has been waiting to have her knee replaced for a long time. Pt states her is not able to physically help her d/t his own back limitations. She states she has to hold onto his belt while he is walking with his cane. Objective: [] General Observation: initially presented semireclined on stretcher hugging pillow with cryocuff to knee.2nd session pt presented reclined in chair with cryocuff to knee. Mental Status: Alert and Ox 4 , able to follow instructions, agreeable to participate in assessment Pain: 6-7/ 10 initially; reduced to 3-4/10 left knee ROM: [] Right Upper Extremity: WNL Left Upper Extremity: WNL Right Lower Extremity:WNL Left Lower Extremity: WNL Strength: [] Right Upper Extremity:5/5 Left Upper Extremity: 5/5 Right Lower Extremity: 5/5 Left Lower Extremity: Hip flexion: 3- /5; hip abduction: 3- /5; hip extension: 3-/5; knee extension: 3- /5; knee flexion: 2+ /5 ankle DF: 3 /5 ; ankle PF: 3/5; fair quad set ( limited by pain), (+) lag with shortened range SLR Sensation: intact Bed Mobility/Transfers: [] Supine to sit supervision Sit to stand SBA with cues for hand placement and to activate quad Stand to sit SBA with cues for hand placement Bed to chair with FWW Min A Gait: min A amb with FWW 20 feet , assistance for tactile cue for quad activation through left LE WB phase to reduce knee instability. Stairs: SBA 5 steps with rail and SBA cues for sequencing and to activate quad in Left SL stance.step to pattern Balance: [] Static Sitting: Normal Dynamic Sitting: good Static Standing: Fair+ Dynamic Standing: Fair Special Tests: [] Mobility Limitations Standardized Measure [] [facility] AM-PAC 6 clicks Basic Mobility Inpatient Short Form: [] Raw Score: [] CMS Score: [] Informed Consent/Education: Patient instructed in purpose of PT consult. Treatment: 72922:Packet containing TKA exercise protocol has been given to patient. Education and training on initial set of 10 reps exercises that can be done at home have been completed with patient. 44092: second session BP 106/68 O2 sat 96%; pt perform sit to stand transfers from chair and toilet with SBA no cues for hand placement needed, Pt ambulated 100 feet with FWW with SBA and intermittent cues for quad activation ; step to pattern with slow kemar. diminished knee flexion left swing phase , vaulting noted to advance Left LE. Assessment: Patient is a 69 yo female who presents with clinical signs and symptoms consistent with current/admitting diagnoses that have resulted to mobility limitations, gait instability, generalized weakness, and impairment of motor control as demonstrated by the following impairment level findings: 1. Decreased strength to left knee major muscle groups 2. Impaired standing balance 3. Limitation of joint range of motion in left knee 4. Pain left knee 5. Impaired Functional activity tolerance Impairments are contributing to the following functional limitations: 1. Inability to safely ambulate without assistive device 2. Increase completion time for mobility ADL performance 3. Increased fall risk 4. Difficulty performing stairs safely without assistance Pt with episode during initial ambulation. Assisted to chair where pt reported feeling warm and lightheaded. Vitals taken 91/73 HR 74 O2 sat 94% reclined in chair. Nurse present for VS. Pt allowed to rest , liquids provided and reapproached for second session with improvement in BP as stated above and ability to activate left Quad during functional tasks and perform quad set with improved recruitment of muscle. Patient is assessed as a moderate complexity based on the following: History: 69-year-old female with impairment level findings, functional limitations, and past medical history as indicated above Examination: Demonstrable impairment in strength, balance, and mobility level with underlying impairments and functional limitations as documented above Presentation: evolving Decision Making: moderate Goals: N/A. PT evaluation and 1-2 treatment sessions only for functional mobility training using recommended AD and for HEP instruction. Plan of Care/Treatment Plan: N/A. PT evaluation and 1-2 treatment session only for functional mobility training using recommended AD and for HEP instruction. DISCHARGE RECOMMENDATIONS: Home with HEP and Outpatient PT as scheduled TREATMENT CODE/TIME: 08093, [id number], [id number]/ [id number], [id number] Thank you for the opportunity to participate in the care of this patient. Vy Ly, PT [facility]
== END 2025-04-05 14:46 | disposition home or self-care (01) ==
PROVIDERS: PCP Nurse Practitioner Family; Visit Provider Student in an Organized Health Care Education/Training Program
PROC: (CPT 27447; principal; 2025-04-05 09:30)
DX: M17.12 Unilateral primary osteoarthritis, left knee (principal); I48.91 Unspecified atrial fibrillation; Z79.01 Long term (current) use of anticoagulants; G89.18 Other acute postprocedural pain
CPT/HCPCS: 27447; C1776; 64447; 64450; 97110; 97162; 97530; J0665; J0690; J1100; J1171; J2250; J2371; J2401; J2405; J2704; J3475

== ENCOUNTER 2025-04-19 15:30 | Outpatient (CLI) | payer MEDICARE, SELFPAY ==
--- NOTE | 2025-04-19 13:15 | DI.RAD_ITS ---
Exam(s) XR KNEE LT 1V XR STANDING ALIGNMENT EXAM: XR STANDING ALIGNMENT and XR knee LT 1 V CLINICAL HISTORY: 1ST POST OP L TKA. TECHNIQUE: 2D digital imaging was performed. Five images were obtained. COMPARISON: CR XR knee LT 3V AP,lat,sweetie from 02/27/2019 CR XR KNEE LT 2V AP,LAT from 01/15/2025 CR XR STANDING ALIGNMENT from 01/15/2025 FINDINGS: BONES: The hips are well maintained. Since the prior examination, the patient has undergone a left total knee arthroplasty. The orthopedic hardware appears in good position. No suspicious lucencies are seen in or around the orthopedic hardware. The right knee is well maintained. The ankles are well maintained.There is no significant leg length discrepancy. SOFT TISSUE: Normal. IMPRESSION: Unremarkable appearance of the left total knee arthroplasty. DATA REPOSITORY: RADIATION DOSE DELIVERED:
== END 2025-04-19 15:31 | disposition home or self-care (01) ==
LOC: DIORS 04-20 09:38
PROVIDERS: PCP Nurse Practitioner Family; Referring Provider Nurse Practitioner Family; Visit Provider Physician Assistant
DX: Z47.1 Aftercare following joint replacement surgery (principal); Z96.652 Presence of left artificial knee joint; M25.562 Pain in left knee
CPT/HCPCS: 99024; 73560; 77073

== ENCOUNTER → 2025-05-28 14:35 | Outpatient (BNVA) | payer MEDICARE, SELFPAY | PROVIDERS: PCP Nurse Practitioner Family; Referring Provider Nurse Practitioner Family; Visit Provider Physician Assistant | DX: Z47.1 Aftercare following joint replacement surgery (principal); Z96.652 Presence of left artificial knee joint | CPT/HCPCS: 99024 ==

== ENCOUNTER → 2025-07-12 13:39 | Outpatient (BNVA) | payer MEDICARE, SELFPAY | PROVIDERS: PCP Nurse Practitioner Family; Referring Provider Nurse Practitioner Family; Visit Provider Physician Assistant | DX: Z47.1 Aftercare following joint replacement surgery (principal); Z96.652 Presence of left artificial knee joint | CPT/HCPCS: 99212 ==

== ENCOUNTER 2025-08-09 01:40 | Outpatient (CLI) | payer MEDICARE, SELFPAY ==
[2025-08-09 16:41] LABS: Hemoglobin A1C 5.8 % (<5.7)
[2025-08-09 17:05] LABS: Cholesterol 163 mg/dL (<200); HDL Cholesterol 72 mg/dL (>40)
== END 2025-08-09 01:41 | disposition home or self-care (01) ==
LOC: LBO 01:43
PROVIDERS: PCP Nurse Practitioner Family; Visit Provider Nurse Practitioner Family
DX: R73.03 Prediabetes (principal); Z00.00 Encounter for general adult medical examination without abnormal findings; F34.1 Dysthymic disorder; F41.9 Anxiety disorder, unspecified; I48.91 Unspecified atrial fibrillation; E78.5 Hyperlipidemia, unspecified; G47.00 Insomnia, unspecified
CPT/HCPCS: 36415; 80061; 83036